=== PATIENT | female | born 1935 | race Caucasian/White ===

== ENCOUNTER → 2016-09-06 | Day surgery (SDC) | payer OTHER, MEDICARE ==
[~2016-09-06] MED LIST: AGRYLIN0.5 MG PO; ALBUTEROL1.25 MG/1 INH/SOL; AMMONIUM LACTA140 GM TOP; ASPIRIN EC81 M1 PO; AUGMENTIN 875-1 EACH PO; CEFADROXIL500 M1 PO; CYCLOBENZAPRINE5 M2 PO; ERYTHROMYCIN1 GM OS; GUAIFENESIN DM S5 ML PO; HYDROXYUREA500 M1 PO; IBUPROFEN600 M1 PO; LORATADINE10 M1 PO; MONTELUKAST SOD10 M1 PO; OMEPRAZOLE20 M2 PO; PREDNISONE10 M2 PO; RESTASIS1 EACH OPH; SYMBICORT 16010.2 GM INH; TIMOPTIC-XE5 M1 OS; TRAMADOL HCL50 M1 PO; TRIAMCINOLONE A15 G3 TOP
--- NOTE | 2016-09-06 14:02 | Operative Report ---
Operative/Inv Procedure Report Surgery Date: 09/06/16 Name of Procedure: Excision nasolabial lesion with frozen section with advancement rotation flap reconstruction, 3 x 4 cm Pre-Operative Diagnosis: Nasolabial lesion, right, 2 x 3 centimeters Post-Operative Diagnosis: Same Estimated Blood Loss: scant Surgeon/Adjunct Faculty Instructor: DELROY PEREZ MD Anesthesia: general endotracheal tube Drains: None Specimens: A nasolabial lesion, stitch 12 o"clock Complications: None Condition: Stable on leaving the OR Operative Indication: Nasolabial lesion Operative/Procedure Note Note: Patient was brought to the operating room. Placed on the operating table in supine position. First timeout was performed including patient's name, ID number and planned procedure. Then general orotracheal anesthesia was induced. Endotracheal tube was moved to the left corner of the left and taped. Operating room table was rotated 90 to the patient's right . Right face and nose exposed. A first biopsy with scissors was carried. A small fragment of the mass was sent for frozen. In the meantime injection of 1% lidocaine with 1-100, 000 epinephrine was carried. A transverse injection was carried over the upper lip and then along the nasal columella and lateral nostril and onto the nasal fossa. The area was then prepped and draped in the routine manner and surgery was performed. The lesion was exophytic and obstructing the right nostril. It was extending from lateral nostril, over the skin of the upper lip and medially onto the nasal columella. Then the lesion was extending along the floor of the nose into the anterior nasal fossa. It measured approximately 2 x 3 cm. It was quite hemorrhagic. Frozen section returned as described with proliferative lesion. Excision was then carried taking into consideration adequate surgical margins. Excision started at the upper lip region and extended onto the nasal columella sparing the cartilage and then laterally onto the nasal alar and then along the floor of the nose until the entire lesion was excised. Deep excision in both soft tissue and the muscular layer. Once the lesion was excised it was marked with 12:00 stitch orientation. Bleeding was controlled with the Bovie. Lesion was sent for frozen to assess the margins. Pathology revealed that all the margins were clear. Closure was then carried. Advancement rotational flap was created to avoid widening of the nostril and to avoid pulling nasal mucosa to the outside as well as to avoid retracting the upper lip to high in exposure of the upper teeth. Deep layer was closed first with 5-0 Vicryl. Either lateral aspect of the nostril was medialized to approximate the size of the nostril on the left side. The skin was closed with 5-0 nylon. The wound was cleaned and Polysporin was applied. Surgery was completed. The patient was reawakened, extubated and taken to the recovery room in good condition. There were no complications. Estimated blood loss was minimal. Findings: Upper lid, nostril, nasal floor, nasal columella - exophytic hemorrhagic lesion , approximately 2 x 3 cm and obstructing the right nostril. It was extending from lateral nostril, over the skin of the upper lip and medially onto the nasal columella. Then the lesion was extending along the floor of the nose into the anterior nasal fossa. Discharge Disposition: PACU
== END ==
LOC: STS 01:30
DX: C30.0 Malignant neoplasm of nasal cavity (principal); I10 Essential (primary) hypertension; D45 Polycythemia vera; R51 Headache; J45.909 Unspecified asthma, uncomplicated
CPT/HCPCS: 88305; 88331; 88332; J0690; J1100; J2405

== ENCOUNTER 2017-09-04 12:21 | Inpatient (IN) | payer OTHER, MEDICARE ==
[~2017-09-04] VITALS: Ht 157.5 cm; Wt 74.5 kg
--- NOTE | 2017-09-04 15:15 | RADIOLOGY REPORT ---
EXAMINATION: XR CHEST CLINICAL INFORMATION: Cough and fever COMPARISON: 03/08/2016 TECHNIQUE: 2 views of the chest were obtained. FINDINGS: No significant abnormality is noted involving the heart, lungs, mediastinum, bony thorax or soft tissues. An incidental bone island is seen in the upper thoracic spine. IMPRESSION: Unremarkable examination.
[2017-09-04 15:52] LABS: ABSOLUTE BASOPHIL COUNT 0.8 /CUMM (0.0-0.2); ABSOLUTE EOSINOPHIL COUNT 0.3 /CUMM (0.0-0.7); ABSOLUTE GRANULOCYTE CT 23.7 /CUMM (1.4-6.5); ABSOLUTE LYMPH COUNT 1.1 /CUMM (1.2-3.4); ABSOLUTE MONOCYTE COUNT 1.8 /CUMM (0.10-0.60); EOSINOPHIL % 1.1 % (0-5); GRANULOCYTE % 85.4 % (42.2-75.2); HEMATOCRIT 45.2 % (37-47); MEAN CORPUSCULAR HGB 37.7 PG (27.0-31.0); MEAN CORPUSCULAR HGB CONC 31.8 G/DL (33.0-37.0); MEAN CORPUSCULAR VOLUME 118.5 FL (81.0-99.0); MEAN PLATELET VOLUME 9.7 FL (7.4-10.4); PLATELET COUNT 801 /CUMM (130-400); RBC DISTRIBUTION WIDTH 16.1 % (11.5-14.5); RED BLOOD CELL CT 3.81 /CUMM (4.20-5.40); WHITE BLOOD CELL COUNT 27.7 /CUMM (4.8-10.8)
[2017-09-04] MEDS ORDERED: ASPIRIN EC81 M1 PO (16:06)
--- NOTE | 2017-09-04 17:03 | ED GENERAL ADULT ---
History of Present Illness General Chief Complaint: Upper Respiratory Sx/Fever Stated Complaint: COUGH Source: patient Exam Limitations: no limitations Vital Signs & Intake/Output Vital Signs & Intake/Output Vital Signs Date Time Temp Pulse Resp B/P B/P Pulse O2 O2 Flow FiO2 Mean Ox Delivery Rate 09/06 1452 98.1 97 20 98/60 92 Room Air 09/06 0800 96 Room Air 09/06 0603 97.7 87 20 110/78 94 09/06 0000 Room Air 09/05 2211 97.9 88 20 96/64 92 Room Air ED Intake and Output 09/06 0000 09/05 1200 Intake Total 840 240 Output Total Balance 840 240 Intake, Oral 840 240 Number 1 Bowel Movements Allergies Coded Allergies: No Known Allergies (09/04/17) Triage Note: PT TO ED FOR C/C OF PRODUCTIVE YELLOW COUGH X 2 DAYS. DENIES CHEST PAIN, SOB, ABD PAIN, BODY ACHES, CHILLS. PT REPORTS AFTER EATING COUGH GETS WORSE. Triage Nurses Notes Reviewed? yes Onset: Gradual Duration: day(s): (2), constant, continues in ED, getting worse Timing: single episode today Injury Environment: home Severity: moderate, severe No Modifying Factors: none Associated Symptoms: cough LMP (ages 10-50): unknown : No Patient currently breastfeeds: No HPI: 82-year-old female past medical history of polycythemia vera presents for evaluation of cough, congestion and fever. Patient reports symptoms started about 2 days ago be getting worse. Cough is productive of yellow sputum. She reports wheezing and some shortness of breath. Fever started today. No nausea vomiting abdominal pain chest pain hemoptysis or lower extremity edema. She denies any history of smoking or lung disease. She not take any medicine for this. No sick contacts or recent travel. (Williams CORONA,Doc) Reconcile Medications Anagrelide Hydrochloride (Agrylin) 0.5 MG CAPSULE 1 TAB PO BID UNKNOWN ( Reported) Aspirin (Ecotrin*) 81 MG TABLET.DR 1 TAB PO DAILY HEART/BLOOD (Reported) Azithromycin 250 MG TABLET 1 TAB PO DAILY Bronchitis Cyclosporine (Restasis) 1 EACH DROPERETTE 1 GTT OPH BID BOTH EYES (Reported) Hydroxyurea 500 MG CAPSULE 3 CAP PO DAILY PVC (Reported) Montelukast Sodium 10 MG TABLET 1 TAB PO QPM ALLERGIES (Reported) Oseltamivir Phosphate (Tamiflu) 30 MG CAPSULE 1 CAP PO BID Influenza Prednisone 10 MG TABLET 0 PO AD Shortness of Breath Timolol Maleate (Timoptic-Xe) 5 ML NIC.GEL 1 GTT OS QAM LEFT EYE (Reported) (Elier LÓPEZ,Oscar Sal) Past History Travel History Traveled to [place] past 21 day No Medical History Any Pertinent Medical History? 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 No (Doc Yusuf) Review of Systems Review of Systems Constitutional: Reports: fever, malaise. EENTM: Reports: no symptoms. Respiratory: Reports: see HPI, cough, sputum production, wheezing. Cardiovascular: Reports: no symptoms. GI: Reports: no symptoms. Genitourinary: Reports: no symptoms. Musculoskeletal: Reports: no symptoms. Skin: Reports: no symptoms. Neurological/Psychological: Reports: no symptoms. Hematologic/Endocrine: Reports: no symptoms. Immunologic/Allergic: Reports: no symptoms. All Other Systems: Reviewed and Negative (Doc Yusuf) Physical Exam Physical Exam General Appearance: well developed/nourished, no apparent distress, alert, awake Head: atraumatic, normal appearance Eyes: Bilateral: normal appearance, PERRL, EOMI. Ears, Nose, Throat: normal pharynx, normal ENT inspection, hearing grossly normal Neck: normal inspection, supple, full range of motion Respiratory: chest non-tender, no respiratory distress, rhonchi, wheezing Cardiovascular: regular rate/rhythm, normal peripheral pulses Peripheral Pulses: 2+ radial (R), 2+ radial (L) Gastrointestinal: soft, non-tender Back: normal inspection, normal range of motion, no vertebral tenderness Extremities: normal inspection, normal range of motion, no edema Neurologic/Psych: no motor/sensory deficits, awake, alert, oriented x 3, normal gait, normal mood/affect Skin: intact, normal color, warm/dry Lymphatic: no anterior cervical raymond Core Measures ACS in differential dx? No CVA/TIA Diagnosis: No Sepsis Present: No Sepsis Focused Exam Completed? No (Doc Yusuf) Progress Differential Diagnoses I considered the following diagnoses in my evaluation of the patient: [Pneumonia , influenza, acute bronchitis, COPD, CHF, PE] Plan of Care: Orders Procedure Date/time Status CBC WITHOUT DIFFERENTIAL 09/07 0600 Active MISSING MEDICATION FORM 09/06 UNK Active MISSING MEDICATION FORM 09/05 2119 Active Current Medications Sig/Chantel Start time Last Medication Dose Stop Time Status Admin Prednisone 10 MG DAILY 09/09 1000 AC 09/09 1001 Prednisone 20 MG DAILY 09/08 1000 AC 09/08 1001 Prednisone 30 MG DAILY 09/07 1000 AC 09/07 1001 Albuterol Sulfate 3 ML Q4 09/06 1400 AC (Proventil) Ipratropium Bend 2.5 ML Q4 09/06 1400 AC (Atrovent) Azithromycin 250 MG DAILY 09/06 1000 AC 09/06 (Zithromax) 0920 Benzocaine/Menthol 1 STEPHANIE Q2P PRN 09/06 0330 AC 09/06 (Chloraseptic 0929 Lozenges) Oseltamivir Phosphate 30 MG BID 09/05 1338 AC 09/06 (Tamiflu) 09/09 1337 0946 Aspirin Buffered 81 MG DAILY 09/05 1000 AC 09/06 (Ecotrin) 0920 Hydroxyurea 1,500 MG DAILY 09/05 1000 AC 09/06 (Hydrea) 0920 Guaifenesin/Codeine 10 ML Q6P PRN 09/05 0845 AC 09/06 Phosphate 1348 (Robitussin AC) Guaifenesin 600 MG Q12 09/04 2300 AC 09/06 (Mucinex) 0919 Omeprazole 40 MG DAILY AC 09/04 2300 AC 09/06 (Prilosec) 0600 Anagrelide HCl 0.5 MG BID 09/04 2200 AC 09/06 (Agrylin) 0920 Benzonatate 100 MG TID PRN 09/04 2200 AC 09/05 (Tessalon Capsule) 09/07 215 0533 Montelukast Sodium 10 MG QPM 09/04 2200 AC 09/05 (Singulair) 2120 Enoxaparin Sodium 40 MG DAILY 09/04 2005 AC 09/06 (Lovenox) 0920 Patient seen and evaluated. She currently is febrile to 100.3 she has a cough productive of clear sputum. Suspicion for pneumonia versus bronchitis. She has diffuse wheezing bilaterally DuoNeb ordered. Blood work shows elevated white blood cell count of 27,000. Patient does have a history of polycythemia vera but her previous white blood cell count was 6000. PCV theoretically should not affect her white blood cells. She also has signs and symptoms of lung infection and bronchitis. Urine is clean. Her abdomen and pelvis is soft and nontender. EKG is stable troponin negative CTA is negative for PE or pneumonia. Patient will be admitted to the hospital for further evaluation due to bronchitis with fever and significant leukocytosis. She will require IV antibiotics serial labs , SERIAL chest x-rays monitoring of vital signs. Case discussed with Dr. Thapa he agrees. Diagnostic Imaging: Viewed by Me: Radiology Read, CT Scan. Discussed w/RAD: Radiology Read, CT Scan. Radiology Impression: PATIENT: BELEN YEAGER PRESENT AGE: 82 PATIENT ACCOUNT NO: [id number] : 33 LOCATION: [facility] ORDERING PHYSICIAN: Doc CORONA SERVICE DATE: 09/04/17 EXAM TYPE: CAT - CTA CHEST-PULMONARY EMBOLISM EXAMINATION: CT ANGIOGRAM OF THE CHEST WITH AND WITHOUT CONTRAST (CT PULMONARY ANGIOGRAM FOR PE) CLINICAL INFORMATION: Cough, fever and shortness of breath. COMPARISON: Chest radiograph 09/04/2017. CT chest 01/13/2016. TECHNIQUE: Prior to contrast administration, noncontrast localization images were obtained. Subsequently, multidetector volumetric imaging was performed from the thoracic inlet to below the diaphragms following the administration of 94 mL Optiray 320 intravenous contrast. No contrast reaction reported. Sagittal, coronal, and MIP oblique sagittal reformatted images were obtained on the CT workstation, uploaded to PACS, and reviewed. DLP: 474 mGy-cm FINDINGS: QUALITY OF STUDY/CONTRAST BOLUS: Poor to fair. There is significant respiratory motion artifact limiting peripheral assessment. PULMONARY ARTERIES: No central or segmental pulmonary emboli. Subsegmental vessels are not evaluated. The main pulmonary artery is normal in caliber. There is mild dilatation of the central right and left pulmonary arteries. THORACIC AORTA: No aneurysm or dissection. The ascending aorta measures 3.8 cm in maximum diameter. Coronary artery calcification (LAD) is partly visualized. LUNG: No obvious consolidation or mass is identified. Mild bibasilar subsegmental atelectasis. PLEURA: No pleural effusion or pneumothorax. MEDIASTINUM: Normal heart size. No pericardial effusion. No hilar or mediastinal lymphadenopathy. No evidence of septal bowing or right heart strain. CHEST WALL/AXILLA: No axillary or internal mammary lymphadenopathy. OSSEOUS STRUCTURES: A bone island is identified at T4. Multilevel degenerative changes are seen. UPPER ABDOMEN: The visualized liver is unremarkable. There is cholelithiasis without gallbladder wall thickening or pericholecystic fluid. The spleen is enlarged measuring 14.7 cm in AP dimension. Visualized pancreas and adrenal glands are unremarkable. IMPRESSION: 1. No evidence of central pulmonary embolism or major consolidation or atelectasis. 2. The study is limited by motion. 3. Cholelithiasis without evidence of cholecystitis. Splenomegaly. VTE: Negative. DICTATED BY: Dario Hill MD DATE/TIME DICTATED:09/04/171756 SHIPPING ORDER CLERK:RAMOS DATE/TIME TRANSCRIBED:09/04/171756 CONFIDENTIAL, DO NOT COPY WITHOUT APPROPRIATE AUTHORIZATION. <Electronically signed in Other Vendor System> SIGNED BY: Dario Hill MD 09/04/171839, PATIENT: BELEN YEAGER PRESENT AGE: 82 PATIENT ACCOUNT NO: [id number] : 33 LOCATION: [facility] ORDERING PHYSICIAN: Doc CORONA SERVICE DATE: 09/04/17 EXAM TYPE: RAD - XRY-CHEST XRAY, TWO VIEWS EXAMINATION: XR CHEST CLINICAL INFORMATION: Cough and fever COMPARISON: 03/08/2016 TECHNIQUE: 2 views of the chest were obtained. FINDINGS: No significant abnormality is noted involving the heart, lungs, mediastinum, bony thorax or soft tissues. An incidental bone island is seen in the upper thoracic spine. IMPRESSION: Unremarkable examination. DICTATED BY: Dario Hill MD DATE/TIME DICTATED:09/04/171509 SHIPPING ORDER CLERK:RAMOS DATE/TIME TRANSCRIBED:09/04/171509 CONFIDENTIAL, DO NOT COPY WITHOUT APPROPRIATE AUTHORIZATION. <Electronically signed in Other Vendor System> CXR Impression: PATIENT: BELEN YEAGER PRESENT AGE : 82 PATIENT ACCOUNT NO: [id number] : 33 LOCATION: [facility] ORDERING PHYSICIAN: Doc CORONA SERVICE DATE: 09/04/17 EXAM TYPE: RAD - XRY- CHEST XRAY, TWO VIEWS EXAMINATION: XR CHEST CLINICAL INFORMATION: Cough and fever COMPARISON: 03/08/2016 TECHNIQUE: 2 views of the chest were obtained. FINDINGS: No significant abnormality is noted involving the heart, lungs, mediastinum, bony thorax or soft tissues. An incidental bone island is seen in the upper thoracic spine. IMPRESSION: Unremarkable examination. DICTATED BY: Dario Hill MD DATE/TIME DICTATED:09/04/171509 SHIPPING ORDER CLERK:SUZANNE DATE/TIME TRANSCRIBED:09/04/171509 CONFIDENTIAL, DO NOT COPY WITHOUT APPROPRIATE AUTHORIZATION. <Electronically signed in Other Vendor System> Initial ED EKG: normal sinus rhythm, PROBABLE INFERIOR INFARCT OLD (Doc Yusuf) Departure Departure Disposition: STILL A PATIENT Condition: Stable Clinical Impression Primary Impression: Acute bronchitis Qualifiers: Bronchitis organism: unspecified organism Qualified Code: J20.9 - Acute bronchitis, unspecified Secondary Impressions: Fever Qualifiers: Fever type: unspecified Qualified Code: R50.9 - Fever, unspecified Leukocytosis Qualifiers: Leukocytosis type: unspecified Qualified Code: D72.829 - Elevated white blood cell count, unspecified Referrals: Kit LÓPEZ,Josselin Alvarado (PCP/Family) Departure Forms: Customer Survey General Discharge Information (Doc Yusuf) Departure Prescriptions: Current Visit Scripts Oseltamivir Phosphate (Tamiflu) 1 CAP PO BID #7 CAP Prednisone 0 PO AD #12 TAB Azithromycin 1 TAB PO DAILY #3 TAB Admission Note Spoke With: Ginger Flynn MD Documentation of Exam: Documentation of any treatments & extenuating circumstances including Concerns Regarding Discharge (functional status, medication knowledge or non-compliance, living conditions, etc.) that warrant an admission rather than observation: [IV FLUIDS, IV ABX, PULM CONSULT, ID CONSULT] PA/AWNING ERECTOR Co-Sign Statement Statement: ED Attending supervision documentation- [X] I saw and evaluated the patient. I have also reviewed all the pertinent lab results and diagnostic results. I agree with the findings and the plan of care as documented in the PA's/AWNING ERECTOR's documentation. [X] I have reviewed the ED Record and agree with the PA's/AWNING ERECTOR's documentation. [] Additions or exceptions (if any) to the PAs/AWNING ERECTOR's note and plan are summarized below: [] (Elier LÓPEZ,Oscar Sal) Critical Care Note Critical Care Note Critical Care Time: non-applicable (Doc Yusuf) ED Sepsis Exam Date of Focused Sepsis Exam: 09/04/17 Time of Focused Sepsis Exam: 1931 Sepsis Cardiac Exam: Regular Rate/Rhythm Sepsis Resp Exam: Ronchi Sepsis Cap Refill Exam: <2 Sec Sepsis Peripheral Pulse Exam: Normal Sepsis Peripheral Pulse Location: Radial Sepsis Skin Color Exam: Normal for Ethnicity Skin Temp/Moisture Exam: Warm/Dry (Doc Yusuf)
--- NOTE | 2017-09-04 18:40 | CT SCAN REPORT ---
EXAMINATION: CT ANGIOGRAM OF THE CHEST WITH AND WITHOUT CONTRAST (CT PULMONARY ANGIOGRAM FOR PE) CLINICAL INFORMATION: Cough, fever and shortness of breath. COMPARISON: Chest radiograph 09/04/2017. CT chest 01/13/2016. TECHNIQUE: Prior to contrast administration, noncontrast localization images were obtained. Subsequently, multidetector volumetric imaging was performed from the thoracic inlet to below the diaphragms following the administration of 94 mL Optiray 320 intravenous contrast. No contrast reaction reported. Sagittal, coronal, and MIP oblique sagittal reformatted images were obtained on the CT workstation, uploaded to PACS, and reviewed. DLP: 474 mGy-cm FINDINGS: QUALITY OF STUDY/CONTRAST BOLUS: Poor to fair. There is significant respiratory motion artifact limiting peripheral assessment. PULMONARY ARTERIES: No central or segmental pulmonary emboli. Subsegmental vessels are not evaluated. The main pulmonary artery is normal in caliber. There is mild dilatation of the central right and left pulmonary arteries. THORACIC AORTA: No aneurysm or dissection. The ascending aorta measures 3.8 cm in maximum diameter. Coronary artery calcification (LAD) is partly visualized. LUNG: No obvious consolidation or mass is identified. Mild bibasilar subsegmental atelectasis. PLEURA: No pleural effusion or pneumothorax. MEDIASTINUM: Normal heart size. No pericardial effusion. No hilar or mediastinal lymphadenopathy. No evidence of septal bowing or right heart strain. CHEST WALL/AXILLA: No axillary or internal mammary lymphadenopathy. OSSEOUS STRUCTURES: A bone island is identified at T4. Multilevel degenerative changes are seen. UPPER ABDOMEN: The visualized liver is unremarkable. There is cholelithiasis without gallbladder wall thickening or pericholecystic fluid. The spleen is enlarged measuring 14.7 cm in AP dimension. Visualized pancreas and adrenal glands are unremarkable. IMPRESSION: 1. No evidence of central pulmonary embolism or major consolidation or atelectasis. 2. The study is limited by motion. 3. Cholelithiasis without evidence of cholecystitis. Splenomegaly. VTE: Negative.
[2017-09-04] MEDS ORDERED: MONTELUKAST SOD10 M1 PO (19:50)
--- NOTE | 2017-09-04 20:15 | History & Physical ---
VivekHayden 09/04/172012: General Information and HPI MD Statement: I have seen and personally examined BELEN YEAGER and documented this H&P. The patient is a 82 year old F who presented with a patient stated chief complaint of worsening of productive cough for last 2 days. []. Source of Information: patient, old records Exam Limitations: no limitations History of Present Illness: 82 YO F non smoker with PMH of polycythemia vera, thrombocytosis, JESSICA on night time O2, cataract, glaucoma and urinary incontinence came to ED with chief complaint of worsening of productive cough for last 2 days. Patient reported that she was in her usual state of health 2 days back when she noticed that her cough has been worsening and she is bringing up yellow colored phlegm. According to the patient she has baseline cough for a long time but for last 2 days it started to worsen and she had to cough all the time and she also noticed that her diaphragm color has been changed to yellow. Patient reported that along with cough she noticed pain in the lower lateral chest wall due to coughing. Patient denied any central chest pain, shortness of breath, palpitation, headache, nausea, vomiting, change in appetite, unintentional weight loss, abdominal pain, diarrhea, constipation and dysuria. Patient reported that she was diagnosed with obstructive sleep apnea by Dr. Staley and he recommended her to use nighttime oxygen but after her nostril surgery in 2016, she is not using any oxygen during nighttime. Patient is living alone at her home and her comes and helped her to follow the doctor's clinic. Patient reported that she is following her primary care physician regularly. Patient is using hydroxyurea for polycythemia vera and following . Last time patient was admitted in [facility] in December 2015 with acute hypoxic respiratory failure due to pneumonia. Patient also had intra-abdominal wall hematoma at that point with a care due to ATN. Her last echocardiogram was done in December 2015 with ejection fraction 5560 percent with stage I diastolic filling. Patient has lesion on left side of her upper lip for which she is following her licensed psychologist. ED course: Vitals: Temperature 100.3, pulse 109, respiratory rate 15, blood pressure 118/79 , oxygen saturation 97% on room air Labs: WBC count 27.7, hemoglobin 14.4, hematocrit 45.2, platelet count 801, sodium 140, potassium 4.8, BUN 26, creatinine 1.0, lactic acid 1.1, and 12, BUNs /creatinine ratio 26.0, glucose 93, bilirubin 1.3, AST 26, ALT 25, total protein 7.3 Patient was given 1 dose of azithromycin in ED Allergies/Medications Allergies: Coded Allergies: No Known Allergies (09/04/17) Home Med list Anagrelide Hydrochloride (Agrylin) 0.5 MG CAPSULE 1 TAB PO BID UNKNOWN ( Reported) Aspirin (Ecotrin*) 81 MG TABLET.DR 1 TAB PO DAILY HEART/BLOOD (Reported) Cyclosporine (Restasis) 1 EACH DROPERETTE 1 GTT OPH BID BOTH EYES (Reported) Hydroxyurea 500 MG CAPSULE 3 CAP PO DAILY PVC (Reported) Montelukast Sodium 10 MG TABLET 1 TAB PO QPM ALLERGIES (Reported) Timolol Maleate (Timoptic-Xe) 5 ML NIC.GEL 1 GTT OS QAM LEFT EYE (Reported) Past History Travel History Traveled to [place] past 21 day No Medical History Neurological: NONE EENT: cataracts, glaucoma, Retinal Detatchment Cardiovascular: NONE Respiratory: pneumonia Gastrointestinal: NONE Hepatic: NONE Renal: urinary incontinence Musculoskeletal: NONE Psychiatric: NONE Endocrine: NONE Blood Disorders: POLYCYTHEMIA VERA thrombocytosis Cancer(s): NONE SUPER[employer]OR [employer]PPLY/Reproductive: NONE History of MRSA: No History of VRE: No History of CDIFF: No Pneumonia Vaccine: 12/10/14 Surgical History Surgical History: N Past Family/Social History Family History Relations & Conditions if any MOTHER FH: diabetes mellitus SISTER FH: diabetes mellitus Psychosocial History Who Do You Live With? self Services at Home: None Primary Language: Turkmen ETOH Use: denies use Illicit Drug Use: denies illicit drug use Living Will? unknown Power of Steel Grinder/HCP? Patient deffered her - [place] Functional Ability ADLs Independent: dressing, eating, toileting, bathing. Ambulation: walker Review of Systems Review of Systems Constitutional: Reports: no symptoms. EENTM: Reports: no symptoms. Cardiovascular: Reports: no symptoms. Respiratory: Reports: cough, sputum production. GI: Reports: no symptoms. Genitourinary: Reports: no symptoms. Musculoskeletal: Reports: see HPI. Skin: Reports: see HPI. Neurological/Psychological: Reports: no symptoms. Hematologic/Endocrine: Reports: see HPI. Exam & Diagnostic Data Last 24 Hrs of Vital Signs/I&O Vital Signs Date Time Temp Pulse Resp B/P B/P Pulse O2 O2 Flow FiO2 Mean Ox Delivery Rate 09/04 2110 97.9 98 16 121/70 96 Room Air 09/04 2104 Room Air 09/04 2014 97.6 87 18 116/74 94 Room Air 09/04 1701 97.2 68 18 112/68 93 Room Air 09/04 1550 100.3 09/04 1226 100.3 109 15 118/79 97 Room Air Room Air Intake & Output 09/04 1600 09/04 0800 09/04 0000 Intake Total Output Total Balance Patient 170 lb Weight Weight Reported by Patient Measurement Method Physical Exam General Appearance Alert, Oriented X3, Cooperative, No Acute Distress Skin No Rashes Skin Temp/Moisture Exam: Warm/Dry Sepsis Skin Exam (color): Normal for Ethnicity HEENT Atraumatic, PERRLA, EOMI Neck Supple Cardiovascular Normal S1, Normal S2 Lungs Clear to Auscultation, Normal Air Movement Abdomen Normal Bowel Sounds, Soft Neurological Normal Speech, Strength at 5/5 X4 Ext, Normal Tone Extremities No Edema Assessment/Plan Assessment: 82 YO F with PMH of polycythemia vera, JESSICA, cataract, glaucoma and urinary incontinence came to ED with chief complaint of worsening of productive cough for last 2 days. We'll admit the patient on general medicine floor to treat for acute bronchitis. Acute bronchitis: Patient is meeting SIRS criteria 2 out of 4. Pulse 109, WBC count 27.7. Unclear about source of infection as her CT scan and chest x-ray is negative for pneumonia. Her lactic acid is 1.1 on admission. -Possible viral brochitis -TRC nebulization as needed -Mucinex for cough -PO omeprazole -Tessalon Perles -Follow blood and spuitum cultures -Follow off antibiotics now. -May need antibiotics if spikes fever or culture positive. -Pulmonology consult (call Dr. Staley) History of polycythemia: -Continue hydroxyurea History of thrombocytosis: -Continue Agrylin DVT prophylaxis: Mechanical and subcutaneous heparin CODE STATUS: Full code As Ranked By This Provider Problem List: 1. Acute bronchitis Qualifiers Bronchitis organism: unspecified organism Qualified Code: J20.9 - Acute bronchitis, unspecified 2. Leukocytosis Qualifiers Leukocytosis type: unspecified Qualified Code: D72.829 - Elevated white blood cell count, unspecified Core Measures/Misc (03/09) Acute Coronary Syndrome ACS Diagnosis: No Congestive Heart Failure Congestive Heart Failure Diagnosis No Cerebrovascular Accident CVA/TIA Diagnosis: No VTE (View Protocol) VTE Risk Factors Age>40 No Mechanical VTE Prophylaxis d/t N/A MechProphylax Ordered No VTE Pharm Prophylaxis d/t NA PharmProphylax ordered Sepsis (View protocol) Sepsis Present: No Nahomy Brown 09/04/17 2206: Resident Review Statement Resident Statement: examined this patient, discussed with it intern, agreed with it intern Other Findings: Patient is 82-year-old pleasant female with past medical history significant for polycythemia vera on hydroxyurea, and thrombocytosis on anagrelide, obstructive sleep apnea, status post nasal growth removal came in with chief complaint of worsening productive cough for 1-2 days. Last admission at [facility] in January 2016 for acute respiratory failure due to pneumonia and abdominal wall hematoma. Patient had mild cough for a few weeks but for last 2 days her cough Worse make her up all night. Cough is productive of clear phlegm and she denied any associated chills, and shortness of breath, chest pain, dizziness, nausea, vomiting, any urinary or bowel complaints. She denied any high-grade fever at home. There is no h/o sick contact. Vital signs on admission but temperature 100.3, pulse 109, respiratory rate 15, blood pressure 118/79 and she was saturating 97% on room air. Labs were significant for WBC count 27.7 with no bandemia, hemoglobin 14.4, hematocrit 45.2, platelet 801, normal electrolytes, BUN 26, creatinine 1.0, negative troponins Imaging study doesn't show any significant acute cardiopulmonary pathology EKG showed normal sinus rhythm with no acute ST-T wave changes On examination Alert and oriented 3 Head atraumatic HEENT PERRLA, atraumatic Neck supple Chest clear to auscultate with reduced air entry Heart S1-S2 normal with no added sounds Abdomen soft, no organomegaly, normal bowel sounds Extremities showed no edema, cyanosis Neurological examination showed no neurological deficit. Assessment and plan 82-year-old female with history of polycythemia vera, obstructive sleep apnea came in with chief complaint of worsening cough and leukocytosis most likely due to acute viral bronchitis. Problem list 1. Worsening cough most likely due to bronchitis 2. History of polycythemia vera 3. Meeting criteria for Sirs 4. Thrombocytosis Plan 1. We'll admit her in general medical floor 2. We will treat her symptomatically with cough suppressant, mucolytics and proton pump inhibitors. 3. We will monitor her WBC count. At this point no need to treat her with antibiotics given her negative imaging study. 4. We'll continue her home medications including hydroxyurea, anagrelide and montelukast. 5. We'll request pulmonology evaluation by Dr. Staley in a.m. Patient is full code Pharmacological DVT prophylaxis Heart healthy diet Ginger Flynn 09/05/17 0228: Attending MD Review Statement Attending Statement Attending MD Statement: examined this patient, discuss w/resident/PA/RAG CUTTING MACHINE OPERATOR, agreed w/resident/PA/RAG CUTTING MACHINE OPERATOR, reviewed EMR data (avail), reviewed images, amended to note Attending Assessment/Plan: CC: Cough PMH: Polycythemia vera, seasonal allergies, JESSICA on night time 02 Patient has chronic cough but since yesterday she noticed that her cough is getting worse, more so after eating. She could not sleep the whole night yesterday, endorses wheezing. She has white color sputum production. Denies any sick contacts, no smoking history, no passive smoking exposure. She denies any sinus congestion, nasal discharge, throat pain, sore throat, chest pain, chest congestion, palpitations. No fever or chills at home. Vitals: MAXIMUM TEMPERATURE 100.3, pulse 109, RR 15, blood pressure 118/79, saturating well on room air. On exam: A O 3, cooperative, no acute distress, neck supple, JVD normal, no lymphadenopathy, mucosa moist, no pharyngeal congestion, no focal neurological deficit, no dependent edema, no obvious skin rashes or inflammation CVS: S1-S2, RRR. RS: Clear to auscultate bilaterally. Abdomen: Soft, NT, ND, bowel sounds present. Assessment and plan 82-year-old female with past medical history significant for polycythemia, JESSICA and seasonal allergies presented in ER for excessive cough since yesterday with white colored sputum production, could not sleep all night. She also endorses associated wheezing intermittently but denies any fever or chills at home, chest pain, chest tightness, nasal congestion or discharge. Auscultation unremarkable except questionable mild wheezing anterior chest wall. She is found to have significant leukocytosis of 27,000 with left shift. Chest x-ray and CTA chest was unremarkable. No other source of infection identified. Patient may be having viral bronchitis with SIRS response. Given her history of PCV, currently on medications and fever of 100.3, she needs closer monitoring but hold off antibiotics, obtain blood cultures, provide symptomatic treatment and reassess. Influenza negative. She is on anagrelide and hydroxyurea but leukocytosis is less likely medication side effect. + SIRS with unclear source of infection + ?Viral infection bronchitis + Hx of PCV - Admit to general medicine - Continue TRC nebs - Continue Tesrajan Infante - Continue Mucinex - Watch off antibiotics - Follow blood cultures - Continue on her home medications - Inform Dr. Staley, patient requests - Patient may need antibiotics if fever spike
[2017-09-04 21:11] VITALS: BP 121/70
[2017-09-04 23:28] VITALS: BP 106/71
--- NOTE | 2017-09-05 07:18 | PN- Housestaff ---
See Addendum Subjective Follow-up For: Influenza B Viral Bronchitis Subjective: Patient was seen and examined at bedside. She states that her chest hurts from all the coughing. She feels the cough syrup helped her though. Review of Systems Constitutional: Reports: no symptoms. Objective Last 24 Hrs of Vital Signs/I&O Vital Signs Date Time Temp Pulse Resp B/P B/P Pulse O2 O2 Flow FiO2 Mean Ox Delivery Rate 09/05 1452 97.3 107 20 110/60 91 Room Air 09/05 1056 Room Air Room Air 09/05 0759 99.9 105 20 127/73 96 Room Air 09/05 0000 Room Air 09/04 2328 98.6 52 18 106/71 94 Room Air 09/04 2111 97.9 98 16 121/70 96 Room Air 09/04 2104 Room Air 09/04 2015 97.6 87 18 116/74 94 Room Air 09/04 1701 97.2 68 18 112/68 93 Room Air 09/04 1550 100.3 Intake & Output 09/05 1600 09/05 0800 09/05 0000 Intake Total 240 120 Output Total Balance 240 120 Intake, Oral 240 120 Patient 164 lb Weight Weight Bed scale Measurement Method Physical Exam General Appearance: Alert, Oriented X3, Cooperative, No Acute Distress Skin: No Rashes, No Breakdown Skin Temp/Moisture Exam: Warm/Dry Sepsis Skin Exam (color): Normal for Ethnicity HEENT: Atraumatic Cardiovascular: Normal S1, Normal S2, No Murmurs Lungs: diffuse rhonchi Abdomen: Soft, No Tenderness Neurological: Normal Speech Extremities: No Edema Assessment/Plan Assessment: 82 yo F with PMH of polycythemia vera, thrombocytosis, JESSICA on night time O2, cataract, glaucoma and urinary incontinence came to ED with chief complaint of worsening of productive cough for last 2 days. Assessment: 1. Influenza B 2. Viral Bronchitis 3. Leukocytosis Plan: * Start Tamiflu 30mg BID * Azithromycin 500mg today and 250mg from tomorrow for a total of 5 days. She can continued on this if going home over the weekend. * Prednisone 40mg with taper every 2 days. * Pulm recs appreciated. * Continue night time oxygen if needed. * She has a high white count which has slightly trended down from yesterday. Her old records from earlier this year in June show her white count to be 12.9. This is clearly elevated likely in the setting of infection. * Swallow eval to assess for any aspiration. * Discharge planning based on clinical improvement. * Diet: Regular * DVT Prophylaxis: * Code: Full code Problem List: 1. Influenza B Pain Ratin Pain Location: none Pain Goal: Remain pain free Pain Plan: none Tomorrow's Labs & Rationales: CBC, BEP
[2017-09-05 07:59] VITALS: BP 127/73
[2017-09-05 08:41] LABS: ABSOLUTE BASOPHIL COUNT 0 /CUMM (0.0-0.2); ABSOLUTE EOSINOPHIL COUNT 0.3 /CUMM (0.0-0.7); ABSOLUTE GRANULOCYTE CT 24.7 /CUMM (1.4-6.5); ABSOLUTE LYMPH COUNT 0.7 /CUMM (1.2-3.4); ABSOLUTE MONOCYTE COUNT 0.2 /CUMM (0.10-0.60); BASOPHIL % 0 % (0.0-2.0); EOSINOPHIL % 1.1 % (0-5); GRANULOCYTE % 95.5 % (42.2-75.2); MEAN CORPUSCULAR HGB 37.8 PG (27.0-31.0); MEAN PLATELET VOLUME 9.8 FL (7.4-10.4); RBC DISTRIBUTION WIDTH 16.5 % (11.5-14.5); RED BLOOD CELL CT 3.35 /CUMM (4.20-5.40); WHITE BLOOD CELL COUNT 25.9 /CUMM (4.8-10.8)
[2017-09-05 10:18] LABS: HEMATOCRIT 39.5 % (37-47)
[2017-09-05 10:20] LABS: PLATELET COUNT 645 /CUMM (130-400)
--- NOTE | 2017-09-05 10:43 | Patient Discharge Instructions ---
Discharge Instructions General Discharge Information You were seen/treated for: Acute Bronchitis Special Instructions: Please follow up with your PCP and fashion illustrator within one week of discharge. Please have your CBC checked on 09/15/17 Diet Continue normal diet: Yes Activity Full Activity/No Limits: Yes Acute Coronary Syndrome Inclusion Criteria At DC or during hospital stay patient has or had the following: ACS DIAGNOSIS No Discharge Core Measures Meds if any: Prescribed or Continued at Discharge Meds if any: NOT Prescribed or Continued at Discharge Congestive Heart Failure Inclusion Criteria At DC or during hospital stay patient has or had the following: CHF DIAGNOSIS No Discharge Core Measures Meds if any: Prescribed or Continued at Discharge Meds if any: NOT Prescribed or Continued at Discharge Cerebrovascular accident Inclusion Criteria At DC or during hospital stay patient has or had the following: CVA/TIA Diagnosis No Discharge Core Measures Meds if any: Prescribed or Continued at Discharge Meds if any: NOT Prescribed or Continued at Discharge Venous thromboembolism Inclusion Criteria VTE Diagnosis No VTE Type NONE VTE Confirmed by (Test) NONE Discharge Core Measures - Per Current guidelines, there needs to be overlap - treatment for the first 5 days of Warfarin therapy. - If discharged on Warfarin prior to 5 days of - overlap therapy, the patient will need to be - assessed for post discharge needs including - *Post discharge parental anticoagulation - *Warfarin and/or parental anticoagulation education - *Follow up date to check INR post discharge At least 5 days overlap therapy as Inpatient No Meds if any: Prescribed or Continued at Discharge Note: Overlap Therapy is Warfarin and Anticoagulant Meds if any: NOT Prescribed or Continued at Discharge
[2017-09-05 14:52] VITALS: BP 110/60
--- NOTE | 2017-09-05 14:55 | Cons- Pulmonary ---
General Information and HPI Consulting Request Date of Consult: 09/05/17 Requested By: Dr. Mack Reason for Consult: dyspnea Source of Information: patient Exam Limitations: no limitations History of Present Illness: 82 year old woman known to me from the office. She sees me for nocturnal hypoxemia/chronic hypoxemic respiratory failure. Nocturnal pulse oximetry 04/2016 80% lowest and 72 minutes below 89%. Has had a nasal lesion and s/p excision, hence has not used nocturnal o2. History of PCV. Presented with a productive cough for 2 days, no obvious sick contacts, no travel hx. Leukocytosis 27.7 now 25.9. Positive for Influenza type B. CTA without PE or evidence of pneumonia. Feeling better overall, still with leukocytosis. Allergies/Medications Allergies: Coded Allergies: No Known Allergies (09/04/17) Home Med List: Anagrelide Hydrochloride (Agrylin) 0.5 MG CAPSULE 1 TAB PO BID UNKNOWN ( Reported) Aspirin (Ecotrin*) 81 MG TABLET.DR 1 TAB PO DAILY HEART/BLOOD (Reported) Cyclosporine (Restasis) 1 EACH DROPERETTE 1 GTT OPH BID BOTH EYES (Reported) Hydroxyurea 500 MG CAPSULE 3 CAP PO DAILY PVC (Reported) Montelukast Sodium 10 MG TABLET 1 TAB PO QPM ALLERGIES (Reported) Timolol Maleate (Timoptic-Xe) 5 ML NIC.GEL 1 GTT OS QAM LEFT EYE (Reported) Current Medications: Current Medications Sig/Chantel Start time Last Medication Dose Route Stop Time Status Admin Acetaminophen 0 .STK-MED ONE 09/04 1539 DC PO Acetaminophen 975 MG ONCE ONE 09/04 1445 DC 09/04 PO 09/04 1446 1550 Albuterol Sulfate 3 ML ONCE ONE 09/04 1445 DC 09/04 INH 09/04 1446 1457 Anagrelide HCl 0.5 MG BID 09/04 2200 AC 09/05 PO 0959 Aspirin Buffered 81 MG DAILY 09/05 1000 AC 09/05 PO 0959 Azithromycin 500 MG ONCE ONE 09/05 1030 DC 09/05 PO 09/05 1031 1340 Azithromycin 500 MG ONCE ONE 09/04 1900 DC 09/04 Dextrose/Water 250 ML IV 09/04 Benzonatate 100 MG TID PRN 09/04 2200 AC 09/05 PO 09/07 215 0533 Ceftriaxone Sodium 0 .STK-MED ONE 03/15 2004 DC .ROUTE Ceftriaxone Sodium 1,000 MG ONCE ONE 09/04 1900 DC 09/04 IV 09/04 1901 2009 Enoxaparin Sodium 0 .STK-MED ONE 09/04 2019 DC SC Enoxaparin Sodium 40 MG DAILY 09/04 2006 AC 09/05 SC 1000 Guaifenesin 600 MG Q12 09/04 2300 AC 09/05 PO 0959 Guaifenesin/Codeine 10 ML Q6P PRN 09/05 0845 AC 09/05 Phosphate PO 0959 Hydroxyurea 1,500 MG DAILY 09/05 1000 AC 09/05 PO 0959 Ipratropium [place] 2.5 ML ONCE ONE 09/04 1445 DC 09/04 INH 09/04 1446 1456 Montelukast Sodium 10 MG QPM 09/04 2200 AC 09/05 PO 0103 Omeprazole 40 MG DAILY AC 09/04 2300 AC 09/05 PO 0531 Oseltamivir Phosphate 30 MG BID 09/05 1338 AC PO 09/09 1337 Oseltamivir Phosphate 75 MG BID 09/05 1332 DC PO 09/09 1331 Prednisone 40 MG ONCE ONE 09/05 1030 DC 09/05 PO 09/05 1031 1221 Review of Systems Comments 18 point review of systems was performed and reviewed. Please see pertinent positives and pertinent negatives in the HPI. Otherwise ROS is negative. 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 Home Who Do You Live With? self Services at Home: None Primary Language: Armenian Smoking Status: Never Smoked ETOH Use: denies use Illicit Drug Use: denies illicit drug use Living Will? unknown Power of Bankruptcy Assistant/HCP? Patient deffered her - [place] Functional Ability ADLs Independent: dressing, eating, toileting, bathing. Ambulation: walker Exam & Diagnostic Data Last 24 Hrs of Vital Signs/I&O Vital Signs Date Time Temp Pulse Resp B/P B/P Pulse O2 O2 Flow FiO2 Mean Ox Delivery Rate 09/05 1056 Room Air Room Air 09/05 0759 99.9 105 20 127/73 96 Room Air 09/05 0000 Room Air 09/04 2328 98.6 52 18 106/71 94 Room Air 09/04 2111 97.9 98 16 121/70 96 Room Air 09/04 2104 Room Air 09/04 2014 97.6 87 18 116/74 94 Room Air 09/04 1701 97.2 68 18 112/68 93 Room Air 09/04 1550 100.3 Intake & Output 09/05 1600 09/05 0800 09/05 0000 Intake Total 240 120 Output Total Balance 240 120 Intake, Oral 240 120 Patient 164 lb Weight Weight Bed scale Measurement Method Physical Exam Other Physical Findings: Generally - Awake, alert Head and neck -nasal cannula Cardiovascular - S1, S2 Lungs - B/L rhonchi Abdomen - Bowel sounds positive, soft, non-tender Extremities - trace edema Last 48 Hrs of Labs/Arturo: Laboratory Tests 09/05/17 1138: Virus Culture Pending 09/05/17 0726: Anion Gap 12, Estimated GFR 53 L, BUN/Creatinine Ratio 24.0, CBC w Diff MAN DIFF ORDERED, RBC 3.35 L, MCV 118.0 H, MCH 37.8 H, MCHC 32.0 L, RDW 16.5 H, MPV 9.8, Gran % 95.5 H, Lymphocytes % 2.6 L, Monocytes % 0.8 L, Eosinophils % 1.1, Basophils % 0, Absolute Granulocytes 24.7 H, Absolute Lymphocytes 0.7 L, Absolute Monocytes 0.2, Absolute Eosinophils 0.3, Absolute Basophils 0, Polychromasia 2+, Poikilocytosis 2+, Anisocytosis 2+, Macrocytic Cells 3+, Stomatocytes 1+ 09/04/17 1741: Lactic Acid Cancelled 09/04/17 1706: Urine Color YEL, Urine Clarity HAZY H, Urine pH 6.0, Ur Specific [place] 1.020, Urine Protein TRACE H, Urine Ketones NEG, Urine Nitrite NEG, Urine Bilirubin NEG, Urine Urobilinogen 0.2, Ur Leukocyte Esterase NEG, Ur Microscopic SEDIMENT EXAMINED, Urine RBC RARE, Urine WBC RARE, Ur Epithelial Cells RARE, Urine Bacteria FEW H, Urine Mucus FEW, Urine Hemoglobin TRACE-INTACT, Urine Glucose NEG 09/04/17 1541: Anion Gap 12, Estimated GFR 53 L, BUN/Creatinine Ratio 26.0 H, Glucose 93, Lactic Acid 1.1, Calcium 8.9, Total Bilirubin 1.3, AST 26, ALT 25, Alkaline Phosphatase 88, Total Protein 7.3, Albumin 4.0, Globulin 3.3, Albumin/Globulin Ratio 1.2, CBC w Diff MAN DIFF ORDERED, RBC 3.81 L, MCV 118.5 H, MCH 37.7 H, MCHC 31.8 L, RDW 16.1 H, MPV 9.7, Gran % 85.4 H, Lymphocytes % 4.0 L, Monocytes % 6.5, Eosinophils % 1.1, Basophils % 3.0 H, Absolute Granulocytes 23.7 H, Segmented Neutrophils 86 H, Band Neutrophils 2, Absolute Lymphocytes 1.1 L, Lymphocytes 5 L, Monocytes 4, Absolute Monocytes 1.8 H, Eosinophils 2, Absolute Eosinophils 0.3, Basophils 1, Absolute Basophils 0.8, Nucleated RBCs 2 H, Platelet Estimate INCREASED, Polychromasia 1+, Anisocytosis 1+, Macrocytic Cells 2+, Stomatocytes FEW 09/04/17 1230: Virus Culture Pending Microbiology 09/05 1215 NASOPHARYN: Influenza Virus A & B Rapid Smear - COMP INFLUENZA TYPE B 09/04 1230 NASOPHARYN: Influenza Virus A & B Rapid Smear - COMP Assessment/Plan Impression/Plan: Impression 82 year old woman * viral bronchitis * influenza type B Plan -prednisone 40mgx2,30x2,20x2,10x2 then stop -okay to complete course of zpak (anti-inflammatory properties) -tamiflu course -droplet precautions -monitor wbc -trc/nebs -encourage and inquire if she is capable of using o2 at night which can benefit her polycythemia DVT prophylaxis at all times Consult Acknowledgment - Thank you for your consult request.
[2017-09-05] MEDS ORDERED: PREDNISONE10 M2 PO (19:12)
[2017-09-05] MEDS ORDERED: TAMIFLU30 M1 PO (19:12)
[2017-09-05] MEDS ORDERED: AZITHROMYCIN250 M1 PO (21:47)
[2017-09-05 22:11] VITALS: BP 96/64
[2017-09-06 06:03] VITALS: BP 110/78
--- NOTE | 2017-09-06 08:15 | PN- Housestaff ---
Danial LÓPEZ,Toma 09/06/17 0814: Subjective Follow-up For: Influenza positive Complaints: complains of cough Subjective: Patient was seen and examined at bedside. No overnight events. Patient complains of on and off cough with no sputum production. Patient is saturating well on 2 L of oxygen. She denies chest pain, chest pressure, nausea, vomiting, fever. Review of Systems Constitutional: Reports: no symptoms. EENTM: Reports: no symptoms. Respiratory: Reports: cough. Gastrointestinal: Reports: no symptoms. Objective Last 24 Hrs of Vital Signs/I&O Vital Signs Date Time Temp Pulse Resp B/P B/P Pulse O2 O2 Flow FiO2 Mean Ox Delivery Rate 09/06 1452 98.1 97 20 98/60 92 Room Air 09/06 0800 96 Room Air 09/06 0603 97.7 87 20 110/78 94 09/06 0000 Room Air 09/05 2211 97.9 88 20 96/64 92 Room Air Intake & Output 09/06 1600 09/06 0800 09/06 0000 Intake Total 720 240 240 Output Total 450 Balance 270 240 240 Intake, Oral 720 240 240 Number 1 Bowel Movements Output, Urine 450 Physical Exam General Appearance: Alert, Oriented X3, Cooperative, No Acute Distress Cardiovascular: Regular Rate, Normal S1, Normal S2 Lungs: Normal Air Movement Abdomen: Normal Bowel Sounds, Soft, No Tenderness, No Hepatospenomegaly Neurological: Strength at 5/5 X4 Ext, Normal Tone, Sensation Intact Extremities: No Edema, Normal Pulses Current Medications: Current Medications Sig/Chantel Start time Last Medication Dose Route Stop Time Status Admin Albuterol Sulfate 3 ML Q4 09/06 1400 AC INH Anagrelide HCl 0.5 MG BID 09/04 2199 AC 09/06 PO 0920 Aspirin Buffered 81 MG DAILY 09/05 1000 AC 09/06 PO 0920 Azithromycin 250 MG DAILY 09/06 1000 AC 09/06 PO 0920 Benzocaine/Menthol 1 STEPHANIE Q2P PRN 09/06 0330 AC 09/06 PO 0929 Benzonatate 100 MG TID PRN 09/04 2199 AC 09/05 PO 09/07 2159 0533 Enoxaparin Sodium 40 MG DAILY 09/04 2005 AC 09/06 SC 0920 Guaifenesin 600 MG Q12 09/04 2300 AC 09/06 PO 0919 Guaifenesin/Codeine 10 ML Q6P PRN 09/05 0845 AC 09/06 Phosphate PO 1348 Hydroxyurea 1,500 MG DAILY 09/05 1000 AC 09/06 PO 0920 Ipratropium [place] 2.5 ML Q4 09/06 1400 AC INH Montelukast Sodium 10 MG QPM 09/04 2200 AC 09/05 PO 2120 Omeprazole 40 MG DAILY AC 09/04 2300 AC 09/06 PO 0600 Oseltamivir Phosphate 30 MG BID 09/05 1338 AC 09/06 PO 09/09 1337 0946 Prednisone 10 MG DAILY 09/09 1000 AC PO 09/09 1001 Prednisone 20 MG DAILY 09/08 1000 AC PO 09/08 1001 Prednisone 30 MG TAPER 09/07 1000 DC PO 09/10 0959 Prednisone 30 MG DAILY 09/07 1000 AC PO 09/07 1001 Prednisone 40 MG DAILY 09/06 1000 DC 09/06 PO 0920 Assessment/Plan Assessment: 82 yo F with PMH of polycythemia vera, thrombocytosis, JESSICA on night time O2, cataract, glaucoma and urinary incontinence came to ED with chief complaint of worsening of productive cough for last 2 days. Assessment: 1. Influenza B 2. Viral Bronchitis 3. Leukocytosis Plan: * Continue Tamiflu 30mg BID * Azithromycin 500mg today and 250mg from tomorrow for a total of 5 days for its anti-inflammatory effects. She can continued on this if going home over the weekend. * Prednisone 40mg with taper every 2 days. * Pulm recs appreciated. * Continue night time oxygen if needed. * Patient cough hasn't improved and on examination she has bilateral wheeze. Start TRC nebulization. * Patient has a left arm subcutaneous hematoma with no warmth or redness. Suggested right arm elevation and cold compression. * Discharge planning based on clinical improvement. * Diet: Regular * DVT Prophylaxis: * Code: Full code Problem List: 1. Influenza B Pain Ratin Pain Location: None Pain Goal: Remain pain free Pain Plan: Tylenol Tomorrow's Labs & Rationales: CBC Cain LÓPEZ,Richard 09/06/17 1818: Attending Review Statement Attending Statement Attending MD Statement: examined this patient, discuss w/resident/PA/ELIGIBILITY TECHNICIAN, agreed w/resident/PA/ELIGIBILITY TECHNICIAN, discussed with nursing Attending Assessment/Plan: The patient was seen and discussed with house staff. Due to symptoms, rapid influenza testing was done which was positive. Started on Tamuflu and will follow up pulmonary recommendations. Patient had left upper extremity swelling from ?Lovenox subcutaneous injection. Continue to observe with warm compress. Will monitor in hospital today and follow up CBC tomorrow.
--- NOTE | 2017-09-06 09:06 | PN- Pulmonary ---
Subjective HPI/Critical Care Issues: Patient remains comfortable on room air with persistent cough Objective Current Medications: Current Medications Sig/Chantel Start time Last Medication Dose Route Stop Time Status Admin Anagrelide HCl 0.5 MG BID 09/04 2200 AC 09/05 PO 2120 Aspirin Buffered 81 MG DAILY 09/05 1000 AC 09/05 PO 0959 Azithromycin 250 MG DAILY 09/06 1000 AC PO Azithromycin 500 MG ONCE ONE 09/05 1030 DC 09/05 PO 09/05 1031 1340 Benzocaine/Menthol 1 STEPHANIE Q2P PRN 09/06 0330 AC 09/06 PO 0600 Benzonatate 100 MG TID PRN 09/04 2200 AC 09/05 PO 09/07 2159 0533 Enoxaparin Sodium 40 MG DAILY 09/04 2006 AC 09/05 SC 1000 Guaifenesin 600 MG Q12 09/04 2300 AC 09/05 PO 2120 Guaifenesin/Codeine 10 ML Q6P PRN 09/05 0845 AC 09/06 Phosphate PO 0635 Hydroxyurea 1,500 MG DAILY 09/05 1000 AC 09/05 PO 0959 Montelukast Sodium 10 MG QPM 09/04 2200 AC 09/05 PO 2120 Omeprazole 40 MG DAILY AC 09/04 2300 AC 09/06 PO 0600 Oseltamivir Phosphate 30 MG BID 09/05 1338 AC 09/05 PO 09/09 1337 2312 Oseltamivir Phosphate 75 MG BID 09/05 1332 DC PO 09/09 1331 Prednisone 40 MG DAILY 09/06 1000 AC PO Prednisone 40 MG ONCE ONE 09/05 1030 DC 09/05 PO 09/05 1031 1221 Vital Signs & I&O Last 24 Hrs of Vitals and I&O: Vital Signs Date Time Temp Pulse Resp B/P B/P Pulse O2 O2 Flow FiO2 Mean Ox Delivery Rate 09/06 0603 97.7 87 20 110/78 94 09/06 0000 Room Air 09/05 2211 97.9 88 20 96/64 92 Room Air 09/05 1452 97.3 107 20 110/60 91 Room Air 09/05 1056 Room Air Room Air Intake & Output 09/06 1600 09/06 0800 09/06 0000 Intake Total 240 240 Output Total Balance 240 240 Intake, Oral 240 240 Number 1 Bowel Movements Oxygen saturation 94% exam for chest shows occasional rhonchi cardiac exam shows regular S1 and S2 without murmurs Impression/Plan Impression/Plan Impression/Plan: 82-year-old woman admitted with influenza and bronchitis Recommendations: Complete course of antibiotics Tamiflu and rapidly taper prednisone. Follow up sputum C&S
[2017-09-06 14:52] VITALS: BP 98/60
[2017-09-06 22:34] VITALS: BP 109/72
[2017-09-07 07:43] VITALS: BP 147/94
[2017-09-07 08:55] LABS: ABSOLUTE BASOPHIL COUNT 0 /CUMM (0.0-0.2); ABSOLUTE EOSINOPHIL COUNT 0.1 /CUMM (0.0-0.7); ABSOLUTE GRANULOCYTE CT 20.6 /CUMM (1.4-6.5); ABSOLUTE LYMPH COUNT 0.7 /CUMM (1.2-3.4); ABSOLUTE MONOCYTE COUNT 0.1 /CUMM (0.10-0.60); BASOPHIL % 0 % (0.0-2.0); EOSINOPHIL % 0.6 % (0-5); GRANULOCYTE % 95.6 % (42.2-75.2); HEMATOCRIT 38.5 % (37-47); MEAN CORPUSCULAR HGB 37.4 PG (27.0-31.0); MEAN CORPUSCULAR HGB CONC 31.4 G/DL (33.0-37.0); MEAN CORPUSCULAR VOLUME 119.3 FL (81.0-99.0); MEAN PLATELET VOLUME 10.5 FL (7.4-10.4); PLATELET COUNT 690 /CUMM (130-400); RBC DISTRIBUTION WIDTH 16.1 % (11.5-14.5); RED BLOOD CELL CT 3.23 /CUMM (4.20-5.40); WHITE BLOOD CELL COUNT 21.6 /CUMM (4.8-10.8)
--- NOTE | 2017-09-07 09:02 | PN- Pulmonary ---
Subjective HPI/Critical Care Issues: Patient feels somewhat improved with decreased cough. She remains comfortable on room air. Objective Current Medications: Current Medications Sig/Chantel Start time Last Medication Dose Route Stop Time Status Admin Albuterol Sulfate 3 ML BID 09/07 1000 AC INH Albuterol Sulfate 3 ML Q4 09/06 1400 DC 09/06 INH 2158 Anagrelide HCl 0.5 MG BID 09/04 2200 AC 09/06 PO 2116 Aspirin Buffered 81 MG DAILY 09/05 1000 AC 09/06 PO 0920 Azithromycin 250 MG DAILY 09/06 1000 AC 09/06 PO 0920 Benzocaine/Menthol 1 STEPHANIE Q2P PRN 09/06 0330 AC 09/07 PO 0008 Benzonatate 100 MG TID PRN 09/04 2200 AC 09/06 PO 09/07 2159 2116 Enoxaparin Sodium 40 MG DAILY 09/04 2006 AC 09/06 SC 0920 Guaifenesin 600 MG Q12 09/04 2300 AC 09/06 PO 2116 Guaifenesin/Codeine 10 ML Q6P PRN 09/05 0845 AC 09/06 Phosphate PO 2003 Hydroxyurea 1,500 MG DAILY 09/05 1000 AC 09/06 PO 0920 Ipratropium [place] 2.5 ML Q4 09/06 1400 DC INH Montelukast Sodium 10 MG QPM 09/04 2200 AC 09/06 PO 2116 Omeprazole 40 MG DAILY AC 09/04 2300 AC 09/07 PO 0643 Oseltamivir Phosphate 30 MG BID 09/05 1338 AC 09/06 PO 09/09 1337 2116 Prednisone 10 MG DAILY 09/09 1000 AC PO 09/09 1001 Prednisone 20 MG DAILY 09/08 1000 AC PO 09/08 1001 Prednisone 30 MG TAPER 09/07 1000 DC PO 09/10 0959 Prednisone 30 MG DAILY 09/07 1000 AC PO 09/07 1001 Prednisone 40 MG DAILY 09/06 1000 DC 09/06 PO 0920 Vital Signs & I&O Last 24 Hrs of Vitals and I&O: Vital Signs Date Time Temp Pulse Resp B/P B/P Pulse O2 O2 Flow FiO2 Mean Ox Delivery Rate 09/07 0743 97.1 94 20 147/94 91 09/07 0000 94 Room Air 09/06 2234 98.0 95 20 109/72 94 Room Air 09/06 2207 92 Room Air 09/06 1600 Room Air 09/06 1452 98.1 97 20 98/60 92 Room Air Intake & Output 09/07 1600 09/07 0800 09/07 0000 Intake Total 480 500 Output Total Balance 480 500 Intake, Oral 480 500 Room air oxygen saturation 9194% exam for chest shows somewhat diminished breath sounds there are no wheezes present cardiac exam shows regular S1 and S2 without murmurs Impression/Plan Impression/Plan Impression/Plan: 82-year-old woman admitted with influenza and is slowly improving Recommendations: Complete course of antibiotics Tamiflu and rapidly taper prednisone. Follow up sputum C&S the patient continues to improve would hope for discharge tomorrow
[2017-09-07 14:01] VITALS: BP 111/71
--- NOTE | 2017-09-07 14:22 | PN- Gen Med ---
Assessment/Plan Medical Problem List: 1. Bronchitis 2. Hypoxia 3. Acute bronchitis Qualifiers Bronchitis organism: unspecified organism Qualified Code: J20.9 - Acute bronchitis, unspecified 4. Influenza B 5. SIRS (systemic inflammatory response syndrome) Plan: The patient was seen and discussed with house staff. Due to symptoms, rapid influenza testing was done which was positive. Started on Tamuflu and will follow up pulmonary recommendations. Patient had left upper extremity swelling from ?Lovenox subcutaneous injection. Continue to observe with warm compress. Will monitor in hospital today and follow up CBC tomorrow. Leucytosis is resolving. Discharge in AM. Subjective Follow-up For: Bronchitis SOB Subjective: Doing better today shortness of breath is resolving, no chest pain dizziness lightheadedness. Review of Systems Constitutional: Reports: no symptoms. Objective Last 24 Hrs of Vital Signs/I&O Vital Signs Date Time Temp Pulse Resp B/P B/P Pulse O2 O2 Flow FiO2 Mean Ox Delivery Rate 09/07 1401 98.1 99 20 111/71 94 Room Air 09/07 1053 96 Room Air Room Air 09/07 0800 96 09/07 0743 97.1 94 20 147/94 91 03/ 0000 94 Room Air 09/06 2234 98.0 95 20 109/72 94 Room Air 09/06 2207 92 Room Air 09/06 1600 Room Air 09/06 1452 98.1 97 20 98/60 92 Room Air Intake & Output 09/07 1600 09/07 0800 09/07 0000 Intake Total 480 500 Output Total Balance 480 500 Intake, Oral 480 500 Physical Exam General Appearance: Alert, Oriented X3 Other Physical Findings: Cardiovascular: Regular Rate, Normal S1, Normal S2 Lungs: Bilateral air entry equal Abdomen: Normal Bowel Sounds, Soft, No Tenderness, No Hepatospenomegaly Neurological: Strength at 5/5 X4 Ext, Normal Tone, Sensation Intact Extremities: No Edema, Normal Pulses Current Medications: Current Medications Sig/Chantel Start time Last Medication Dose Route Stop Time Status Admin Albuterol Sulfate 3 ML BID 09/07 1000 AC 09/07 INH 1053 Albuterol Sulfate 3 ML Q4 09/06 1400 DC 09/06 INH 2158 Anagrelide HCl 0.5 MG BID 09/04 2200 AC 09/07 PO 0930 Aspirin Buffered 81 MG DAILY 09/05 1000 AC 09/07 PO 0930 Azithromycin 250 MG DAILY 09/06 1000 AC 09/07 PO 0929 Benzocaine/Menthol 1 STEPHANIE Q2P PRN 09/06 0330 AC 09/07 PO 0008 Benzonatate 100 MG TID PRN 09/04 2200 AC 09/06 PO 09/07 2159 2116 Enoxaparin Sodium 40 MG DAILY 09/04 2006 AC 09/07 SC 0930 Guaifenesin 600 MG Q12 09/04 2300 AC 09/07 PO 0929 Guaifenesin/Codeine 10 ML Q6P PRN 09/05 0845 AC 09/07 Phosphate PO 0929 Hydroxyurea 1,500 MG DAILY 09/05 1000 AC 09/07 PO 0930 Ipratropium [place] 2.5 ML Q4 09/06 1400 DC INH Montelukast Sodium 10 MG QPM 09/04 2200 AC 09/06 PO 2116 Nystatin 1 VENANCIO TID 09/07 1001 AC 09/07 TOP 1158 Omeprazole 40 MG DAILY AC 09/04 2300 AC 09/07 PO 0643 Oseltamivir Phosphate 30 MG BID 09/05 1338 AC 09/07 PO 09/09 1337 0930 Prednisone 10 MG DAILY 09/09 1000 AC PO 09/09 1001 Prednisone 20 MG DAILY 09/08 1000 AC PO 09/08 1001 Prednisone 30 MG TAPER 09/07 1000 DC PO 09/10 0959 Prednisone 30 MG DAILY 09/07 1000 DC 09/07 PO 09/07 1001 0929 Prednisone 40 MG DAILY 09/06 1000 DC 09/06 PO 0920 Last 24 Hrs of Labs/Mics: Laboratory Tests 09/07/17 0723: CBC w Diff MAN DIFF ORDERED, RBC 3.23 L, MCV 119.3 H, MCH 37.4 H, MCHC 31.4 L, RDW 16.1 H, MPV 10.5 H, Gran % 95.6 H, Lymphocytes % 3.4 L, Monocytes % 0.4 L, Eosinophils % 0.6, Basophils % 0, Absolute Granulocytes 20.6 H, Absolute Lymphocytes 0.7 L, Absolute Monocytes 0.1, Absolute Eosinophils 0.1, Absolute Basophils 0, Platelet Estimate INCREASED, Polychromasia 1+, Poikilocytosis 2+, Anisocytosis 2+, Macrocytic Cells 3+, Stomatocytes 1+
--- NOTE | 2017-09-07 17:35 | Discharge Summary ---
Visit Information Visit Dates Admission Date: 09/04/17 Discharge Date: 09/08/17 Hospital Course Course Attending Physician: Celina Mack MD Primary Care Physician: Josselin Pantoja MD Hospital Course: 82 yo F with PMH of polycythemia vera, thrombocytosis, JESSICA on night time O2, cataract, glaucoma and urinary incontinence came to ED with chief complaint of worsening of productive cough for last 2 days. She was admitted and treated for Bronchitis likely secondary to Influenza: Patient presented with complains of worsening productive cough. Her CXR did not reveal any acute abnormalities. She was found to have elevated white count. Her rapid influenza test was positive for Influenza B. She was started on a course of Tamiflu (renal dosing), along with a quick Prednisone taper and Azithromycin (Z pack dosing). Patient responded well to treatment. She does have a persistent cough for which she received robitussin. She had a short hospital course without complications. She was discharged in stable disposition and recommended to follow up with her PCP and java programmer analyst within one week of discharge. Leukocytosis: She was found to have a high white count of 24.8. 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 Her old records from earlier this year in June show her white count to be 12.9. The white count is likely in the setting of infection. She was advised to have her CBC repeated in one week. DVT Prophylaxis: SC Lovenox Allergies: Coded Allergies: No Known Allergies (09/04/17) Significant Procedures: SERVICE DATE: 09/04/17 EXAM TYPE: CAT - CTA CHEST-PULMONARY EMBOLISM FINDINGS: QUALITY OF STUDY/CONTRAST BOLUS: Poor to fair. There is significant respiratory motion artifact limiting peripheral assessment. PULMONARY ARTERIES: No central or segmental pulmonary emboli. Subsegmental vessels are not evaluated. The main pulmonary artery is normal in caliber. There is mild dilatation of the central right and left pulmonary arteries. THORACIC AORTA: No aneurysm or dissection. The ascending aorta measures 3.8 cm in maximum diameter. Coronary artery calcification (LAD) is partly visualized. LUNG: No obvious consolidation or mass is identified. Mild bibasilar subsegmental atelectasis. PLEURA: No pleural effusion or pneumothorax. MEDIASTINUM: Normal heart size. No pericardial effusion. No hilar or mediastinal lymphadenopathy. No evidence of septal bowing or right heart strain. CHEST WALL/AXILLA: No axillary or internal mammary lymphadenopathy. OSSEOUS STRUCTURES: A bone island is identified at T4. Multilevel degenerative changes are seen. UPPER ABDOMEN: The visualized liver is unremarkable. There is cholelithiasis without gallbladder wall thickening or pericholecystic fluid. The spleen is enlarged measuring 14.7 cm in AP dimension. Visualized pancreas and adrenal glands are unremarkable. IMPRESSION: 1. No evidence of central pulmonary embolism or major consolidation or atelectasis. 2. The study is limited by motion. 3. Cholelithiasis without evidence of cholecystitis. Splenomegaly. VTE: Negative. SERVICE DATE: 09/04/17 EXAM TYPE: RAD - XRY-CHEST XRAY, TWO VIEWS FINDINGS: No significant abnormality is noted involving the heart, lungs, mediastinum, bony thorax or soft tissues. An incidental bone island is seen in the upper thoracic spine. IMPRESSION: Unremarkable examination. Disposition Summary Disposition Principal Diagnosis: Influenza B Bronchitis Additional Diagnosis: polycythemia vera thrombocytosis JESSICA Discharge Disposition: home or self care Discharge Instructions General Discharge Information Code Status: Full Code Patient's Diet: Regular Patient's Activity: As tolerated Follow-Up Instructions/Appts: Please follow up with your PCP and java programmer analyst within one week of discharge. Please have your CBC checked on 09/15/17 Medications at Discharge Discharge Medications: Continue taking these medications: Hydroxyurea (Hydroxyurea) 500 MG CAPSULE 3 Capsule ORAL DAILY Days = 90 Comments: LAST GIVEN 09/08/17 @ 1052 Cyclosporine (Restasis) 1 EACH DROPERETTE 1 Drop In the eye TWICE DAILY Days = 90 Comments: Last Taken: 01/24/16 Time: 0830 Timolol Maleate (Timoptic-Xe) 5 ML NIC.GEL 1 Drop Left Eye Every Morning Days = 30 Comments: Last Taken: 01/24/16 Time: 0830 Anagrelide Hydrochloride (Agrylin) 0.5 MG CAPSULE 1 Tablet ORAL TWICE DAILY Instructions: LAST GIVEN 09/08/17 @ 1052 Aspirin (Ecotrin*) 81 MG TABLET.DR 1 Tablet ORAL DAILY Comments: LAST GIVEN 09/08/17 @ 1052 Montelukast Sodium (Montelukast Sodium) 10 MG TABLET 1 Tablet ORAL Every night Qty = 30 Start taking the following new medications: Azithromycin (Azithromycin) 250 MG TABLET 1 Tablet ORAL DAILY Qty = 1 No Refills Comments: LAST GIVEN 09/08/17 @ 1052 Oseltamivir Phosphate (Tamiflu) 30 MG CAPSULE 1 Capsule ORAL TWICE DAILY Qty = 3 No Refills Comments: LAST GIVEN 09/08/17 @ 1052 Prednisone (Prednisone) 10 MG TABLET 0 ORAL As Directed Qty = 6 No Refills Comments: Please take 2 tablets of Prednisone 10mg on 09/09 and 09/10 then take 1 tablet of Prednisone 10mg on 09/11 and 09/12 Copies To: Kit LÓPEZ,Josselin Alvarado
[2017-09-07 20:47] VITALS: BP 122/77
[2017-09-08 05:52] VITALS: BP 138/87
--- NOTE | 2017-09-08 07:04 | PN- Housestaff ---
Yokasta LÓPEZ,[facility] 09/08/17 0704: Subjective Follow-up For: Influenza B Viral Bronchitis Subjective: Patient was seen and examined at bedside. She states her coughing has been persistent and has not improved significantly despite being on the cough medication. She does want to be seen by Dr Staley again today. Review of Systems Constitutional: Reports: no symptoms. Respiratory: Reports: cough. Objective Last 24 Hrs of Vital Signs/I&O Vital Signs Date Time Temp Pulse Resp B/P B/P Pulse O2 O2 Flow FiO2 Mean Ox Delivery Rate 09/08 0850 93 Room Air Room Air 09/08 0552 98.1 101 18 138/87 92 Room Air 09/07 2047 97.9 93 18 122/77 92 Room Air 09/07 1928 94 Room Air Room Air 09/07 1401 98.1 99 20 111/71 94 Room Air 09/07 1053 96 Room Air Room Air Intake & Output 09/08 1600 09/08 0800 09/08 0000 Intake Total 240 720 Output Total Balance 240 720 Intake, Oral 240 720 Physical Exam General Appearance: Alert, Oriented X3, Cooperative, Mild Distress Skin: No Rashes, No Breakdown Skin Temp/Moisture Exam: Warm/Dry Sepsis Skin Exam (color): Normal for Ethnicity HEENT: Atraumatic Cardiovascular: Normal S1, Normal S2, No Murmurs Lungs: Clear to Auscultation, Normal Air Movement Abdomen: Soft, No Tenderness Neurological: Normal Speech Extremities: No Edema Assessment/Plan Assessment: 82 yo F with PMH of polycythemia vera, thrombocytosis, JESSICA on night time O2, cataract, glaucoma and urinary incontinence came to ED with chief complaint of worsening of productive cough for last 2 days. Assessment: 1. Influenza B 2. Viral Bronchitis 3. Leukocytosis Plan: * Continue Tamiflu 30mg BID * Azithromycin 250mg to be continued for a total of 5 days (500mg on first day) * Prednisone 30mg today with taper every 2 days. * Pulm recs appreciated. * Night time oxygen if needed. Though patient states she has not needed oxygen ever since she had the nasal surgery. * She has a high white count which has been trending down. Her old records from earlier this year in June show her white count to be 12.9. This is likely elevated likely in the setting of infection. * Swallow eval was done which was not suggestive of aspiration. * Stable to be discharged today. * Diet: Regular * DVT Prophylaxis: SC Lovenox * Code: Full code Problem List: 1. Influenza B Pain Ratin Pain Location: none Pain Goal: Remain pain free Pain Plan: none Tomorrow's Labs & Rationales: none Celina Mack 09/08/17 1234: Attending MD Review Statement Attending Statement Attending MD Statement: examined this patient, discuss w/resident/PA/ENVIRONMENTAL SAFETY SPECIALIST, agreed w/resident/PA/ENVIRONMENTAL SAFETY SPECIALIST, discussed with family, reviewed EMR data (avail), discussed with nursing, discussed with case mgmt, reviewed images, amended to note Attending Assessment/Plan: The patient was seen and discussed with house staff. Due to symptoms, rapid influenza testing was done which was positive. Started on Tamuflu and will follow up pulmonary recommendations. Patient had left upper extremity swelling possible sc lovenox induced hematoma which should heal by itself. Continue tylenol few pills. Anticipate dc soon.
[2017-09-08 09:27] LABS: ABSOLUTE BASOPHIL COUNT 0.1 /CUMM (0.0-0.2); ABSOLUTE EOSINOPHIL COUNT 0.2 /CUMM (0.0-0.7); ABSOLUTE GRANULOCYTE CT 23.9 /CUMM (1.4-6.5); ABSOLUTE LYMPH COUNT 0.6 /CUMM (1.2-3.4); ABSOLUTE MONOCYTE COUNT 0.1 /CUMM (0.10-0.60); BASOPHIL % 0.2 % (0.0-2.0); EOSINOPHIL % 0.7 % (0-5); GRANULOCYTE % 96.2 % (42.2-75.2); HEMATOCRIT 40.1 % (37-47); MEAN CORPUSCULAR HGB 37.3 PG (27.0-31.0); MEAN CORPUSCULAR HGB CONC 31.4 G/DL (33.0-37.0); MEAN CORPUSCULAR VOLUME 118.8 FL (81.0-99.0); MEAN PLATELET VOLUME 10.6 FL (7.4-10.4); PLATELET COUNT 818 /CUMM (130-400); RBC DISTRIBUTION WIDTH 16.6 % (11.5-14.5); RED BLOOD CELL CT 3.37 /CUMM (4.20-5.40); WHITE BLOOD CELL COUNT 24.8 /CUMM (4.8-10.8)
[2017-09-08] MEDS ORDERED: TAMIFLU30 M1 PO ×2 (09:34→11:20)
[2017-09-08] MEDS ORDERED: AZITHROMYCIN250 M1 PO ×2 (09:34→11:20)
[2017-09-08] MEDS ORDERED: PREDNISONE10 M2 PO ×3 (09:34→11:20)
--- NOTE | 2017-09-08 12:22 | PN- Pulmonary ---
Subjective HPI/Critical Care Issues: pt seen and examined feeling better Objective Current Medications: Current Medications Sig/Chantel Start time Last Medication Dose Route Stop Time Status Admin Albuterol Sulfate 3 ML BID 09/07 1000 AC 09/08 INH 0842 Anagrelide HCl 0.5 MG BID 09/04 2200 AC 09/08 PO 1052 Aspirin Buffered 81 MG DAILY 09/05 1000 AC 09/08 PO 1052 Azithromycin 250 MG DAILY 09/06 1000 AC 09/08 PO 1051 Benzocaine/Menthol 1 STEPHANIE Q2P PRN 09/06 0330 AC 09/07 PO 0008 Benzonatate 100 MG TID PRN 09/04 2200 DC 09/06 PO 09/07 2159 2116 Diphenhydramine HCl 25 MG ONCE ONE 09/08 0730 DC 09/08 PO 09/08 0731 0813 Enoxaparin Sodium 40 MG DAILY 09/04 2006 AC 09/07 SC 0930 Guaifenesin 600 MG Q12 09/04 2300 AC 09/08 PO 1051 Guaifenesin/Codeine 10 ML Q6P PRN 09/05 0845 AC 09/08 Phosphate PO 0551 Hydroxyurea 1,500 MG DAILY 09/05 1000 AC 09/08 PO 1052 Montelukast Sodium 10 MG QPM 09/04 2200 AC 09/07 PO 2054 Nystatin 1 VENANCIO TID 09/07 1001 AC 09/08 TOP 1052 Omeprazole 40 MG DAILY AC 09/04 2300 AC 09/08 PO 0548 Oseltamivir Phosphate 30 MG BID 09/05 1338 AC 09/08 PO 09/09 1337 1052 Prednisone 10 MG DAILY 09/09 1000 CAN PO 09/09 1001 Prednisone 20 MG DAILY 09/08 1000 CAN PO 09/08 1001 Prednisone 30 MG 0945 09/08 0945 DC 09/08 PO 09/08 0946 1051 Vital Signs & I&O Last 24 Hrs of Vitals and I&O: Vital Signs Date Time Temp Pulse Resp B/P B/P Pulse O2 O2 Flow FiO2 Mean Ox Delivery Rate 09/08 0850 93 Room Air Room Air 09/08 0800 94 Part ReBreather 09/08 0552 98.1 101 18 138/87 92 Room Air 09/07 2047 97.9 93 18 122/77 92 Room Air 09/07 1928 94 Room Air Room Air 09/07 1401 98.1 99 20 111/71 94 Room Air Intake & Output 09/08 1600 09/08 0800 09/08 0000 Intake Total 240 720 Output Total Balance 240 720 Intake, Oral 240 720 Exam Other Physical Findings: Generally - Awake, alert Head and neck -nasal cannula Cardiovascular - S1, S2 Lungs - B/L rhonchi Abdomen - Bowel sounds positive, soft, non-tender Extremities - trace edema Results Last 24 Hrs of Lab Results: Laboratory Tests 09/08/17 0745: CBC w Diff MAN DIFF ORDERED, RBC 3.37 L, MCV 118.8 H, MCH 37.3 H, MCHC 31.4 L, RDW 16.6 H, MPV 10.6 H, Gran % 96.2 H, Lymphocytes % 2.5 L, Monocytes % 0.4 L, Eosinophils % 0.7, Basophils % 0.2, Absolute Granulocytes 23.9 H, Segmented Neutrophils 92 H, Band Neutrophils 1, Absolute Lymphocytes 0.6 L, Lymphocytes 4 L, Absolute Monocytes 0.1, Eosinophils 2, Absolute Eosinophils 0.2, Absolute Basophils 0.1, Myelocytes 1 H, Platelet Estimate INCREASED, Normochromic RBCs VERIFIED, Polychromasia 2+, Macrocytic Cells 3+, Stomatocytes 1+ Impression/Plan Impression/Plan Impression/Plan: Impression 82 year old woman * viral bronchitis * influenza type B Plan -leukocytosis maybe steroid related - would recommend to check CBC and f/u with PCP upon discharge -prednisone taper as ordered -okay to complete course of zpak (anti-inflammatory properties) -tamiflu course -trc/nebs -continue using o2 at night which can benefit her polycythemia DVT prophylaxis at all times
== END 2017-09-08 14:15 | DRG 194 ==
LOC: ERH 12:21 → 2NB 18:53 → ERHI 18:53 → ENRESERV 20:04 → ENTRNSPT 20:23 → 2NB 20:26 → EDTRNSPTSTS 20:32 → EDTRNSPT 20:32 → 2NB 20:35 → EDTRNSPTTYP 20:49 → CMPTRNSPT 20:50 → 2NB 09-05 08:07 → ENPENDDIS 09-08 11:25 → ENTRNSPT 09-08 14:04 → EDTRNSPTSTS 09-08 14:07 → EDTRNSPT 09-08 14:07 → 2NB 09-08 14:15 → CMPTRNSPT 09-08 14:16
PROVIDERS: Dermatology; Internal Medicine; Physician Assistant Medical; Student in an Organized Health Care Education/Training Program
DX: J10.1 Influenza due to other identified influenza virus with other respiratory manifestations (principal); J96.11 Chronic respiratory failure with hypoxia; D45 Polycythemia vera; J20.8 Acute bronchitis due to other specified organisms; G47.33 Obstructive sleep apnea (adult) (pediatric); H40.9 Unspecified glaucoma; R32 Unspecified urinary incontinence; D47.3 Essential (hemorrhagic) thrombocythemia; D72.829 Elevated white blood cell count, unspecified; H26.9 Unspecified cataract
CPT/HCPCS: 2NBP; 36415; 36592; 71046; 81001; 82436; 87040; 87804; 87804-59; 93005; 93010; 99291; J0456; J0696; J1650; J7060; J7512

== ENCOUNTER 2017-09-15 14:27 | Observation (INO) | payer OTHER, MEDICARE ==
[~2017-09-15] VITALS: Ht 157 cm; Wt 74.8 kg
[~2017-09-15 14:27] MED LIST changes: +AZITHROMYCIN250 M1 PO; +TAMIFLU30 M1 PO
[2017-09-15 17:41] LABS: ABSOLUTE BASOPHIL COUNT 0.5 /CUMM (0.0-0.2); ABSOLUTE EOSINOPHIL COUNT 0.6 /CUMM (0.0-0.7); ABSOLUTE GRANULOCYTE CT 12.6 /CUMM (1.4-6.5); ABSOLUTE LYMPH COUNT 1.5 /CUMM (1.2-3.4); ABSOLUTE MONOCYTE COUNT 2.5 /CUMM (0.10-0.60); BASOPHIL % 2.8 % (0.0-2.0); EOSINOPHIL % 3.5 % (0-5); GRANULOCYTE % 71.1 % (42.2-75.2); MEAN CORPUSCULAR HGB 36.8 PG (27.0-31.0); MEAN CORPUSCULAR VOLUME 118.7 FL (81.0-99.0); MEAN PLATELET VOLUME 10.7 FL (7.4-10.4); RBC DISTRIBUTION WIDTH 16.3 % (11.5-14.5); RED BLOOD CELL CT 3.62 /CUMM (4.20-5.40); WHITE BLOOD CELL COUNT 17.8 /CUMM (4.8-10.8)
[2017-09-15 17:54] LABS: PLATELET COUNT 1028 /CUMM (130-400)
--- NOTE | 2017-09-15 18:07 | RADIOLOGY REPORT ---
EXAMINATION:\H\ \N\XR CHEST CLINICAL INFORMATION: Cough. Malaise. COMPARISON: Chest x-ray 09/04/2017. CTA of chest 09/04/2017 TECHNIQUE: Frontal view of the chest was obtained. 5:40 PM FINDINGS: Lungs are clear. No pulmonary vascular congestion. There is no pleural effusion. The heart size is normal. The cardiac and mediastinal contours are normal. There are calcifications of the thoracic aorta. There are multilevel degenerative changes of dorsal spine. IMPRESSION: Unremarkable examination.
--- NOTE | 2017-09-15 19:13 | ED DYSPNEA/ASTHMA COMPLAINT ---
History of Present Illness General Chief Complaint: Upper Respiratory Sx/Fever Stated Complaint: FLU LIKE SYMPTOMS Source: patient, old records Exam Limitations: no limitations Vital Signs & Intake/Output Vital Signs & Intake/Output Vital Signs Date Time Temp Pulse Resp B/P B/P Pulse O2 O2 Flow FiO2 Mean Ox Delivery Rate 09/15 1449 98.5 92 20 105/73 96 Room Air Allergies Coded Allergies: No Known Allergies (09/04/17) Reconcile Medications Anagrelide Hydrochloride (Agrylin) 0.5 MG CAPSULE 1 TAB PO BID UNKNOWN ( Reported) LAST GIVEN 09/08/17 @ 1052 Aspirin (Ecotrin*) 81 MG TABLET.DR 1 TAB PO DAILY HEART/BLOOD (Reported) Azithromycin 250 MG TABLET 1 TAB PO DAILY Bronchitis Cyclosporine (Restasis) 1 EACH DROPERETTE 1 GTT OPH BID BOTH EYES (Reported) Hydroxyurea 500 MG CAPSULE 3 CAP PO DAILY PVC (Reported) Montelukast Sodium 10 MG TABLET 1 TAB PO QPM ALLERGIES (Reported) Oseltamivir Phosphate (Tamiflu) 30 MG CAPSULE 1 CAP PO BID Influenza Prednisone 10 MG TABLET 0 PO AD Shortness of Breath Timolol Maleate (Timoptic-Xe) 5 ML NIC.GEL 1 GTT OS QAM LEFT EYE (Reported) Triage Note: STATES SHE WAS HERE LAST WEEK AND ADMITTED FOR COUGHING. SHE SAID SHE HAD THE FLU AND STAYED HERE FOR 3 DAYS. STATES SINCE BEING HOME SHE IS FEELING WORSE, STATES SHE IS TAKING COUGH MEDICINE WHICH HELPS A LITTLE. C/O WEAKNESS, PRODUCTIVE COUGH Triage Nurses Notes Reviewed? yes Onset: Abrupt Duration: day(s): Timing: recent history Severity: moderate, severe HPI: Pt is a 82 yo WF with a PMH of polycythemia vera, thrombocytosis, EJSSICA on nightly O2, glaucoma, cataracts, who was recently d/c'ed from on 09/08/2017 for bronchitis 2/2 influenza. She was prescribed prednisone PRN for SOB, azithromycin, and tamiflu upon discharge. Pt states she was told to report to the ED by today after she informed him her symptoms have not improved since being discharged. Pt states she continues to feel extremeley fatigued and weak. She continues to have a cough productive of clear-yellow phlegm. She denies SOB, STEWART, CP, fevers, chills, abdominal pain, N/V/D, hematuria, melena, hemoptysis. (Jairo Madrid) Past History Travel History Traveled to [place] past 21 day No Medical History Any Pertinent Medical History? see below for history Neurological: NONE EENT: cataracts, glaucoma, Retinal Detatchment Cardiovascular: NONE Respiratory: pneumonia Gastrointestinal: NONE Hepatic: NONE Renal: urinary incontinence Musculoskeletal: NONE Psychiatric: NONE Endocrine: NONE Blood Disorders: POLYCYTHEMIA VERA thrombocytosis Cancer(s): NONE CREDIT ASSISTANT/Reproductive: NONE History of MRSA: No History of VRE: No History of CDIFF: No Surgical History Surgical History: N nasal surgery (nasal surgery) Psychosocial History Who do you live with Patient/Self Services at Home None What is your primary language Moroccan Tobacco Use: Never used ETOH Use: occasional use Illicit Drug Use: denies illicit drug use Family History Family History, If Any: MOTHER FH: diabetes mellitus SISTER FH: diabetes mellitus Hx Contributory? No (Jairo Madrid) Review of Systems Review of Systems Constitutional: Reports: malaise, weakness. Denies: chills, diaphoresis, fever. EENTM: Denies: see HPI. Respiratory: Denies: see HPI. Cardiovascular: Denies: chest pain, edema. GI: Denies: abdominal pain, diarrhea, distention, melena, nausea, vomiting. Genitourinary: Denies: dysuria, frequency, hematuria, pain. Musculoskeletal: Denies: no symptoms. Neurological/Psychological: Denies: confusion, headache. Hematologic/Endocrine: Reports: bruising. Denies: bleeding, polyuria, polydipsia. (Jairo Madrid) Physical Exam Physical Exam General Appearance: well developed/nourished, alert, awake, mild distress Head: atraumatic, normal appearance Eyes: Bilateral: normal appearance. Ears, Nose, Throat: normal ENT inspection, hearing grossly normal Neck: normal inspection Respiratory: no respiratory distress, decreased breath sounds Cardiovascular: regular rate/rhythm Extremities: normal inspection Neurologic/Psych: awake, alert, oriented x 3 Skin: intact, normal color Core Measures ACS in differential dx? No CVA/TIA Diagnosis No Sepsis Present: No Sepsis Focused Exam Completed? No (Jairo Madrid) Progress Differential Diagnosis: asthma, AMI, bronchitis, costochondritis, CHF, COPD, musculoskeletal pain, pericarditis, pulmonary embolism, pneumonia, pneumothorax, rib fracture, unstable angina Plan of Care: Orders Procedure Date/time Status Heart Healthy Diet 09/[address] in observation 09/15 2037 Active ED Holding Orders 09/15 2037 Active Vital Signs 09/15 2037 Active Code Status 09/15 2037 Active Add-on Test (ER Only) 09/16 1911 Active EKG 09/16 1911 Active TROPONIN LEVEL 09/15 172 Complete COMPREHENSIVE METABOLIC PANEL 09/16 1707 Complete CBC WITHOUT DIFFERENTIAL 09/16 1707 Complete RAPID VIRAL INFLUENZA A 09/15 143 Complete Current Medications Sig/Chantel Start time Last Medication Dose Stop Time Status Admin Sodium Chloride 1,000 ML ONCE ONE 09/15 2014 AC (Normal Saline 0.9%) 09/16 0934 Laboratory Tests 09/15/17 1721: Anion Gap 11, Estimated GFR 60, BUN/Creatinine Ratio 31.1 H, Glucose 87, Calcium 9.3, Total Bilirubin 0.7, AST 28, ALT 34, Alkaline Phosphatase 70, Troponin I < 0.01, Total Protein 7.4, Albumin 3.8, Globulin 3.6, Albumin/ Globulin Ratio 1.1, CBC w Diff MAN DIFF ORDERED, RBC 3.62 L, MCV 118.7 H, MCH 36.8 H, MCHC 31.0 L, RDW 16.3 H, MPV 10.7 H, Gran % 71.1, Lymphocytes % 8.4 L, Monocytes % 14.2 H, Eosinophils % 3.5, Basophils % 2.8 H, Absolute Granulocytes 12.6 H, Segmented Neutrophils 88 H, Band Neutrophils 2, Absolute Lymphocytes 1.5, Lymphocytes 2 L, Monocytes 3, Absolute Monocytes 2.5 H, Eosinophils 3, Absolute Eosinophils 0.6, Basophils 2, Absolute Basophils 0.5, Nucleated RBCs 1 H, Platelet Estimate VERIFIED BY SMEAR, Polychromasia 1+, Anisocytosis 2+, Macrocytic Cells 2+, Fld Total RBCs Counted 100 Microbiology 09/15 1621 NASOPHARYN: Influenza Virus A & B Rapid Smear - COMP Diagnostic Imaging: Viewed by Me: Radiology Read. Discussed w/RAD: Radiology Read. Radiology Impression: PATIENT: BELEN YEAGER PRESENT AGE: 82 PATIENT ACCOUNT NO: [id number] : 33 LOCATION: [facility] ORDERING PHYSICIAN: Lala CORONA SERVICE DATE: 03 EXAM TYPE: RAD - XRY-CHEST XRAY, SINGLE VIEW EXAMINATION:\H\ \N\XR CHEST CLINICAL INFORMATION: Cough. Malaise. COMPARISON: Chest x-ray 09/04/2017. CTA of chest TECHNIQUE: Frontal view of the chest was obtained. 5:40 PM FINDINGS: Lungs are clear. No pulmonary vascular congestion. There is no pleural effusion. The heart size is normal. The cardiac and mediastinal contours are normal. There are calcifications of the thoracic aorta. There are multilevel degenerative changes of dorsal spine. IMPRESSION: Unremarkable examination. DICTATED BY: Joe Serrano MD DATE/TIME DICTATED:09/15/171801 TRANSPORT MEDIC:SUZANNE DATE/TIME TRANSCRIBED:09/15/171801 CONFIDENTIAL, DO NOT COPY WITHOUT APPROPRIATE AUTHORIZATION. <Electronically signed in Other Vendor System> SIGNED BY: Joe Serrano MD 09/15/171806 Initial ED EKG: normal sinus rhythm, rate (84) (Jairo Madrid) Departure Departure Disposition: STILL A PATIENT Condition: Stable Clinical Impression Primary Impression: Bronchitis Secondary Impressions: Leukocytosis, Weakness Referrals: Kit LÓPEZ,Josselin Alvarado (PCP/Family) Departure Forms: Customer Survey General Discharge Information Observation Note Spoke With: Ginger Flynn MD Physician Advisor Notified: OLIVIA LÓPEZ,SANDRA Sal Place Patient In: Non-ED OBS Care Area Rationale for Observation: My rational for observation is as follows . Increasingly weak. Failed outpatient treatment. Require supplemental O2. Pulmonary consultation. Potentially different antibiotic regimen. Infectious disease consultation. Elevated white blood cell count. PT consult. Case management consultation. (Jairo Madrid) PA/GRAB DRIVER Co-Sign Statement Statement: ED Attending supervision documentation- [X] I saw and evaluated the patient. I have also reviewed all the pertinent lab results and diagnostic results. I agree with the findings and the plan of care as documented in the PA's/GRAB DRIVER's documentation. [X] I have reviewed the ED Record and agree with the PA's/GRAB DRIVER's documentation. [] Additions or exceptions (if any) to the PAs/GRAB DRIVER's note and plan are summarized below: [Patient to be admitted for failed outpatient therapy. Call pulmonary consult, steroids, antibiotics] (Elier LÓPEZ,Red.) Critical Care Note Critical Care Note Critical Care Time: non-applicable (Golden CORONA,Jairo)
--- NOTE | 2017-09-15 21:33 | History & Physical ---
[facility] 09[facility]: General Information and HPI MD Statement: I have seen and personally examined BELEN YEAGER and documented this H&P. The patient is a 82 year old F who presented with a patient stated chief complaint of generalized weakness with productive cough []. Source of Information: patient, old records Exam Limitations: no limitations History of Present Illness: 82 YO F with PMH of polycythemia vera, thrombocytosis, JESSICA on night time O2, cataract, glaucoma and urinary incontinence came to ED with chief complaint of worsening generalized weakness with productive cough for last couple of days. According to patient she had been discharged from hospital 1 week back, when she was treated for influenza with Tamiflu and completed a course of azithromycin. Patient reported that patient reported that she has cough with clear to yellow colored sputum. Patient denied any chest pain, headache, palpitation, diarrhea, constipation, belly pain, lightheadedness, nausea, vomiting, chills, fever and dysuria. Last time patient was admitted [facility] one and half weeks back with productive cough and treated for acute bronchitis and later on her flu test was positive and she got Tamiflu. ED course: Vitals: Temperature 98.5, pulse 92, respiratory rate 20, blood pressure 105/73, oxygen saturation 96% on room air Labs: WBC count 17.8, hemoglobin 13.3, hematocrit 43.0, platelet count 1023, sodium 141, potassium 4.6, BUN 28, creatinine 0.9, anion gap 11, BUNs/creatinine ratio 31.1, glucose 87, calcium 9.3, AST 28, ALT 34, troponin less than 0.01 Patient was given normal saline in ED Flu test is negative Allergies/Medications Allergies: Coded Allergies: No Known Allergies (09/04/17) Past History Travel History Traveled to [place] past 21 day No Medical History Neurological: NONE EENT: cataracts, glaucoma, Retinal Detatchment Cardiovascular: NONE Respiratory: pneumonia Gastrointestinal: NONE Hepatic: NONE Renal: urinary incontinence Musculoskeletal: NONE Psychiatric: NONE Endocrine: NONE Blood Disorders: POLYCYTHEMIA VERA thrombocytosis Cancer(s): NONE GEOSPATIAL SYSTEMS INTEGRATOR/Reproductive: NONE History of MRSA: No History of VRE: No History of CDIFF: No Surgical History Surgical History: N nasal surgery (nasal surgery) Past Family/Social History Family History Relations & Conditions if any MOTHER FH: diabetes mellitus SISTER FH: diabetes mellitus Psychosocial History Who Do You Live With? self Services at Home: None Primary Language: Indonesian ETOH Use: occasional use Illicit Drug Use: denies illicit drug use Living Will? unknown Power of Critical Care Clinical Nurse Specialist/HCP? Patient deffered her - [place] Functional Ability ADLs Independent: dressing, eating, toileting, bathing. Ambulation: walker Review of Systems Review of Systems Constitutional: Reports: weakness. EENTM: Reports: no symptoms. Cardiovascular: Reports: no symptoms. Respiratory: Reports: cough, sputum production. GI: Reports: no symptoms. Genitourinary: Reports: no symptoms. Musculoskeletal: Reports: see HPI. Skin: Reports: no symptoms. Neurological/Psychological: Reports: no symptoms. Hematologic/Endocrine: Reports: no symptoms. Exam & Diagnostic Data Last 24 Hrs of Vital Signs/I&O Vital Signs Date Time Temp Pulse Resp B/P B/P Pulse O2 O2 Flow FiO2 Mean Ox Delivery Rate 09/15 1449 98.5 92 20 105/73 96 Room Air Intake & Output 09/15 1600 09/15 0800 09/15 0000 Intake Total Output Total Balance Patient 165 lb Weight Weight Reported by Patient Measurement Method Physical Exam General Appearance Alert, Oriented X3, Cooperative Skin No Rashes Skin Temp/Moisture Exam: Warm/Dry Sepsis Skin Exam (color): Normal for Ethnicity HEENT Atraumatic, PERRLA, EOMI Neck Supple Cardiovascular Normal S1, Normal S2 Lungs Clear to Auscultation Abdomen Soft, No Tenderness Neurological Normal Speech, Strength at 5/5 X4 Ext, Normal Tone, Sensation Intact Extremities No Edema, B/L heel healing ulcers with scabs Last 24 Hrs of Labs/Arturo: Laboratory Tests 09/15/17 1721: Anion Gap 11, Estimated GFR 60, BUN/Creatinine Ratio 31.1 H, Glucose 87, Calcium 9.3, Total Bilirubin 0.7, AST 28, ALT 34, Alkaline Phosphatase 70, Troponin I < 0.01, Total Protein 7.4, Albumin 3.8, Globulin 3.6, Albumin/ Globulin Ratio 1.1, CBC w Diff MAN DIFF ORDERED, RBC 3.62 L, MCV 118.7 H, MCH 36.8 H, MCHC 31.0 L, RDW 16.3 H, MPV 10.7 H, Gran % 71.1, Lymphocytes % 8.4 L, Monocytes % 14.2 H, Eosinophils % 3.5, Basophils % 2.8 H, Absolute Granulocytes 12.6 H, Segmented Neutrophils 88 H, Band Neutrophils 2, Absolute Lymphocytes 1.5, Lymphocytes 2 L, Monocytes 3, Absolute Monocytes 2.5 H, Eosinophils 3, Absolute Eosinophils 0.6, Basophils 2, Absolute Basophils 0.5, Nucleated RBCs 1 H, Platelet Estimate VERIFIED BY SMEAR, Polychromasia 1+, Anisocytosis 2+, Macrocytic Cells 2+, Fld Total RBCs Counted 100 Microbiology 09/15 1621 NASOPHARYN: Influenza Virus A & B Rapid Smear - COMP Assessment/Plan Assessment: 82 YO F with PMH of polycythemia vera, thrombocytosis, JESSICA on night time O2, cataract, glaucoma and urinary incontinence came to ED with chief complaint of worsening generalized weakness with productive cough for last couple of days. We will keep the patient under observation to treat for post flu syndrome. Post flu syndrome: -TRC nebulization as needed -Mucinex -IV pain medications -If patient spikes fever then we will consider CT scan without contrast to rule out post flu pneumonia -We will treat the patient with antibiotics if it's post flu pneumonia. -Pulmonology consult -Sputum culture History of polycythemia: -Continue hydroxyurea History of thrombocytosis: -Continue Agrylin DVT prophylaxis: Mechanical and subcutaneous heparin CODE STATUS: Full code As Ranked By This Provider Problem List: 1. Weakness Core Measures/Misc (03/09) Acute Coronary Syndrome ACS Diagnosis: No Congestive Heart Failure Congestive Heart Failure Diagnosis No Cerebrovascular Accident CVA/TIA Diagnosis: No VTE (View Protocol) VTE Risk Factors Age>40 No Mechanical VTE Prophylaxis d/t N/A MechProphylax Ordered No VTE Pharm Prophylaxis d/t NA PharmProphylax ordered Sepsis (View protocol) Sepsis Present: No KevinNahomy 09/15/17 2330: General Information and HPI Allergies/Medications Home Med list Anagrelide Hydrochloride (Agrylin) 0.5 MG CAPSULE 1 TAB PO BID UNKNOWN ( Reported) LAST GIVEN 09/08/17 @ 1052 Aspirin (Ecotrin*) 81 MG TABLET.DR 1 TAB PO DAILY HEART/BLOOD (Reported) Cyclosporine (Restasis) 1 EACH DROPERETTE 1 GTT OPH BID BOTH EYES (Reported) Hydroxyurea 500 MG CAPSULE 3 CAP PO DAILY PVC (Reported) Montelukast Sodium 10 MG TABLET 1 TAB PO QPM ALLERGIES (Reported) Timolol Maleate (Timoptic-Xe) 5 ML NIC.GEL 1 GTT OS QAM LEFT EYE (Reported) Resident Review Statement Resident Statement: examined this patient, discussed with pricing intern, agreed with pricing intern Other Findings: Patient is 82-year-old female with past medical history significant for thrombocytosis, polycythemia vera, her sleep apnea, recently admitted at [facility] with acute bronchitis and influenza came with chief complaint of worsening lethargy, weakness and persistent cough. Patient already completed a course of Tamiflu and antibiotics but still feeling very fatigued, lethargic and has persistent productive cough with clear to yellowish in color. She denied any fever, chills, chest pain, headache, any urinary or bowel complaints. Her vital signs on admission were temperature 98.5, pulse 92, respiratory rate 20, blood pressure 105/73 and she was saturating 96% on room air. Labs at admission were WBC count 17.8, hemoglobin 13.3, platelet count 1023, hematocrit 43, sodium 141, potassium 4.6, BUN 28 and creatinine 0.9. Chest x-ray was negative for any acute pathology On examination Patient is alert and oriented 3 Head atraumatic Neck supple no JVD Chest clear to auscultate Heart S1-S2 normal no added sounds Abdomen soft with no organomegaly and normal bowel sounds Extremities showed no edema, chronic non-draining heel ulcers Neurological deficit noted Assessment and plan 82-year-old female with recent history of influenza and past medical history of thrombocytosis, polycythemia vera and came with persistent cough, lethargy and weakness most likely due to post influenza syndrome. Problem list 1. Recent history of influenza 2. Worsening lethargy and weakness 3. History of polycythemia vera History of obstructive sleep apnea Plan 1. We will keep patient in observation for 23 hours on general medical floor 2. we will monitor her cbc and basic electrolyte panel 3. We will give her symptomatic treatment with Tessalon and Robitussin. 4. We will continue her home medications 5. Pulmonary evaluation by Dr. Staley in a.m. and will consider CT chest to rule out pneumonia patient is full code Pharmacological DVT prophylaxis heart healthy diet RinaValentinestanley 09/16/17 0320: Attending MD Review Statement Attending Statement Attending MD Statement: examined this patient, discuss w/resident/PA/CARDIOLOGY RN, agreed w/resident/PA/CARDIOLOGY RN, reviewed EMR data (avail), reviewed images, amended to note Attending Assessment/Plan: CC: Persistent productive cough PMH: Polycythemia vera, retinal detachment left eye, seasonal allergies, JESSICA on suggested night time 02, but not using Patient was admitted from September 04 until September 08 for influenza. She Was treated with azithromycin and Tamiflu along with prednisone taper. She completed the treatment upon discharge but was not getting better. Productive cough persisted and it was very bothersome to her so she came back to ER again. She denies any fever spike at home or chills, no pleuritic chest pain. She denies any sinus congestion, nasal discharge, throat pain, sore throat, chest pain, chest congestion, palpitations. No smoking history, no passive smoking exposure. Vitals: Afebrile, pulse 90s, RR 20, blood pressure 105/73, saturating well on room air. On exam: A O 3, cooperative, no acute distress, pupils unequal, left pupil irregular, reactive. Neck supple, JVD normal, no lymphadenopathy, mucosa moist, no pharyngeal congestion, no focal neurological deficit, no dependent edema, no obvious skin rashes or inflammation, except small ulcer on right heel, noninfected CVS: S1-S2, RRR. RS: Clear to auscultate bilaterally. Abdomen: Soft, NT, ND, bowel sounds present. CXR: Unremarkable examination. Assessment and plan 82-year-old female with past medical history significant for polycythemia, JESSICA and seasonal allergies presented in ER for persistent productive cough. Patient was recently admitted to hospital for similar complaints from September 04 until September 08, was diagnosed to have influenza and was treated with Tamiflu and azithromycin and prednisone taper. She completed the treatment but her symptoms persisted so she came back to ER. She also endorses associated wheezing intermittently but denies any fever or chills at home, chest pain, chest tightness, nasal congestion or discharge. Auscultation unremarkable. Her WBC is trending down. Chest x-ray unremarkable, I personally reviewed the films: right lower lobe may have some infiltrate but which is unchanged from previous x-ray and CT scan done at that time was normal. This could be upper airway cough syndrome after recent viral infection and it may take time to resolve, requiring supportive care. There is a possibility that patient may develop post influenza pneumonia but at this point patient does not have any significant fever, WBC trending down. We will Hold off antibiotics. + Upper airway cough syndrome after recent viral infection + History of PV, JESSICA - Place in observation general medicine - Continue TRC nebs - Continue Tesrickeyon Perles - Continue Mucinex - Watch off antibiotics - Continue on her home medications - Inform Dr. Staley, patient requests - Patient may need antibiotics, and repeat CT chest without IV contrast if fever spike, to rule out developing pneumonia
[2017-09-16 06:18] LABS: ABSOLUTE BASOPHIL COUNT 0 /CUMM (0.0-0.2); ABSOLUTE EOSINOPHIL COUNT 0.6 /CUMM (0.0-0.7); ABSOLUTE GRANULOCYTE CT 16.9 /CUMM (1.4-6.5); ABSOLUTE LYMPH COUNT 0.4 /CUMM (1.2-3.4); ABSOLUTE MONOCYTE COUNT 0.1 /CUMM (0.10-0.60); BASOPHIL % 0.1 % (0.0-2.0); EOSINOPHIL % 3.3 % (0-5); GRANULOCYTE % 93.7 % (42.2-75.2); HEMATOCRIT 38.6 % (37-47); MEAN CORPUSCULAR HGB 37.2 PG (27.0-31.0); MEAN CORPUSCULAR HGB CONC 31.3 G/DL (33.0-37.0); MEAN PLATELET VOLUME 9.4 FL (7.4-10.4); PLATELET COUNT 949 /CUMM (130-400); RBC DISTRIBUTION WIDTH 16.4 % (11.5-14.5); RED BLOOD CELL CT 3.24 /CUMM (4.20-5.40)
[2017-09-16 08:06] VITALS: BP 128/79
--- NOTE | 2017-09-16 09:49 | PN-Observation ---
See Addendum Observation Note Observation Note _ I have personally examined BELEN PHILIP. her disposition is uncertain at this time. Before a determination can be made, she requires continued observation for the following reasons [Cough]. Assessment/Plan Medical Assessment: Ms. Philip is a 82-year-old female with past medical history of polycythemia vera followed by Dr. Davey, retinal detachment left eye, seasonal allergies, JESSICA on suggested night time 02 but not using who presents with cough. Problem list: 1. Postviral cough 2. Thrombocytosis #Postviral cough: Patient was recently admitted for influenza. Now has persistent cough without fever. She does have leukocytosis but has history of malignancy. -If febrile, culture and consider starting antibiotics -Benzotanate, montelukast, guaifenesin -Appreciate pulmonology recommendations #Thrombocytosis: Patient has history of polycythemia vera and now has significantly elevated platelets as well. May be reactive versus malignancy. -Consult Dr. Davey #Chronic medical problems: -Continue home medications DVT prophylaxis with enoxaparin Heart healthy diet Full code Problem List: 1. Post-viral cough syndrome DVT/Prophylaxis: mechanical, pharmacological Discharge Plan Anticipated Discharge (Day): tomorrow Subjective Follow-up For: post viral cough Subjective: Admitted last night for cough. Patient still coughing this morning with some clear sputum. No fevers, SOB, or other complaints. does have URI. Review of Systems Constitutional: Reports: see HPI. Respiratory: Reports: see HPI. Objective Last 24 Hrs of Vital Signs/I&O Vital Signs Date Time Temp Pulse Resp B/P B/P Pulse O2 O2 Flow FiO2 Mean Ox Delivery Rate 09/16 0806 97.1 83 20 128/79 96 Room Air 09/16 0803 96 Room Air 09/16 0739 97.1 83 20 128/79 96 Room Air 09/16 0608 96.9 83 20 130/78 95 Room Air 09/16 0004 98.1 91 20 111/66 97 Room Air 09/15 1910 98.2 94 17 111/67 97 Room Air 09/15 1449 98.5 92 20 105/73 96 Room Air Intake & Output 09/16 1600 09/16 0800 09/16 0000 Intake Total 1000 Output Total Balance 1000 Intake, IV 1000 Patient 74.84 kg Weight Physical Exam General Appearance: Alert, Oriented X3, Cooperative, No Acute Distress HEENT: EOMI, Mucous Membr. moist/pink Cardiovascular: Regular Rate, Normal S1, Normal S2 Lungs: Clear to Auscultation Abdomen: Normal Bowel Sounds, Soft, No Tenderness Extremities: Normal Pulses
[2017-09-16 14:31] VITALS: BP 116/60
--- NOTE | 2017-09-16 15:09 | Cons- Pulmonary ---
General Information and HPI Consulting Request Date of Consult: 09/16/17 Requested By: Dr. Flynn Reason for Consult: cough Source of Information: patient Exam Limitations: no limitations History of Present Illness: 82 year old woman known to me from the office. Recent admission for Influenza type B. She sees me for nocturnal hypoxemia/chronic hypoxemic respiratory failure. Nocturnal pulse oximetry 04/2016 80% lowest and 72 minutes below 89%. Has had a nasal lesion and s/p excision, hence has not used nocturnal o2. History of PCV. Recently had a CTA without PE or evidence of pneumonia. Feeling better overall, still with leukocytosis. Feeling better, residual cough, non-productive. Allergies/Medications Allergies: Coded Allergies: No Known Allergies (09/04/17) Home Med List: Anagrelide Hydrochloride (Agrylin) 0.5 MG CAPSULE 1 TAB PO BID UNKNOWN ( Reported) LAST GIVEN 09/08/17 @ 1052 Aspirin (Ecotrin*) 81 MG TABLET.DR 1 TAB PO DAILY HEART/BLOOD (Reported) Cyclosporine (Restasis) 1 EACH DROPERETTE 1 GTT OPH BID BOTH EYES (Reported) Hydroxyurea 500 MG CAPSULE 3 CAP PO DAILY PVC (Reported) Montelukast Sodium 10 MG TABLET 1 TAB PO QPM ALLERGIES (Reported) Timolol Maleate (Timoptic-Xe) 5 ML NIC.GEL 1 GTT OS QAM LEFT EYE (Reported) Current Medications: Current Medications Sig/Chantel Start time Last Medication Dose Route Stop Time Status Admin Anagrelide HCl 0.5 MG BID 09/16 1000 AC 09/16 PO 1018 Aspirin Buffered 81 MG DAILY 09/16 1000 AC 09/16 PO 1018 Benzonatate 100 MG TID 09/15 2245 AC 09/16 PO 1018 Cyclosporine 1 GTT BID 09/16 1000 AC 09/16 OPH 1018 Enoxaparin Sodium 40 MG DAILY 09/16 1000 AC 09/16 SC 1018 Guaifenesin 0 .STK-MED ONE 09/16 0759 DC PO Guaifenesin 10 ML Q4P PRN 09/15 2245 AC 09/16 PO 1451 Hydroxyurea 1,500 MG DAILY 09/16 1000 AC 09/16 PO 1018 Lactated Ringer's 1,000 ML ONCE ONE 09/16 1100 AC 09/16 IV 09/16 2058 1114 Montelukast Sodium 10 MG QPM 09/16 2200 AC PO Sodium Chloride 1,000 ML ONCE ONE 09/15 2015 DC 09/15 IV 09/16 0934 2116 Timolol Maleate 1 GTT QAM 09/16 1000 AC 09/16 OPH 1018 Review of Systems Comments 18 point review of systems was performed and reviewed. Please see pertinent positives and pertinent negatives in the HPI. Otherwise ROS is negative. Past History Travel History Traveled to [place] past 21 day No Medical History Blood Transfusion Hx: No Neurological: NONE EENT: cataracts, glaucoma, Retinal Detatchment Cardiovascular: NONE Respiratory: pneumonia Gastrointestinal: NONE Hepatic: NONE Renal: urinary incontinence Musculoskeletal: NONE Psychiatric: NONE Endocrine: NONE Blood Disorders: POLYCYTHEMIA VERA thrombocytosis Cancer(s): NONE MANAGER EQUITY/Reproductive: NONE Surgical History Surgical History: none (nasal surgery), nasal surgery Family History Relations & Conditions If Any: MOTHER FH: diabetes mellitus SISTER FH: diabetes mellitus Psychosocial History Who Do You Live With? self Services at Home: None Primary Language: Syrian Smoking Status: Never Smoked ETOH Use: occasional use Illicit Drug Use: denies illicit drug use Living Will? unknown Power of Field Installer/HCP? Patient deffered her - [place] Functional Ability ADLs Independent: dressing, eating, toileting, bathing. Ambulation: walker Exam & Diagnostic Data Last 24 Hrs of Vital Signs/I&O Vital Signs Date Time Temp Pulse Resp B/P B/P Pulse O2 O2 Flow FiO2 Mean Ox Delivery Rate 09/16 1431 97.8 83 20 116/60 93 Room Air 09/16 1306 98.5 85 18 98/55 93 Room Air 09/16 1110 98.0 88 20 121/64 95 Room Air 09/16 0806 97.1 83 20 128/79 96 Room Air 09/16 0803 96 Room Air 09/16 0739 97.1 83 20 128/79 96 Room Air 09/16 0608 96.9 83 20 130/78 95 Room Air 09/16 0004 98.1 91 20 111/66 97 Room Air 09/15 1910 98.2 94 17 111/67 97 Room Air Intake & Output 09/16 1600 09/16 0800 09/16 0000 Intake Total 1000 Output Total Balance 1000 Intake, IV 1000 Patient 165 lb Weight Physical Exam Other Physical Findings: Generally - Awake, alert Head and neck -nasal cannula Cardiovascular - S1, S2 Lungs - B/L rhonchi Abdomen - Bowel sounds positive, soft, non-tender Extremities - trace edema Last 48 Hrs of Labs/Arturo: Laboratory Tests 09/16/17 0655: Urine Color YEL, Urine Clarity CLEAR, Urine pH 6.0, Ur Specific [place] 1.020, Urine Protein TRACE H, Urine Ketones NEG, Urine Nitrite NEG, Urine Bilirubin NEG, Urine Urobilinogen 0.2, Ur Leukocyte Esterase TRACE H, Ur Microscopic SEDIMENT EXAMINED, Urine WBC RARE, Ur Epithelial Cells RARE, Urine Hemoglobin NEG, Urine Glucose NEG 09/16/17 0600: Anion Gap 9, Estimated GFR 60, BUN/Creatinine Ratio 28.9 H, CBC w Diff MAN DIFF ORDERED, RBC 3.24 L, MCV 119.0 H, MCH 37.2 H, MCHC 31.3 L, RDW 16.4 H, MPV 9.4, Gran % 93.7 H, Lymphocytes % 2.3 L, Monocytes % 0.6 L, Eosinophils % 3.3 , Basophils % 0.1, Absolute Granulocytes 16.9 H, Segmented Neutrophils 88 H, Band Neutrophils 3, Absolute Lymphocytes 0.4 L, Lymphocytes 5 L, Monocytes 2, Absolute Monocytes 0.1, Eosinophils 2, Absolute Eosinophils 0.6, Absolute Basophils 0, Nucleated RBCs 1 H, Platelet Estimate INCREASED, Polychromasia 1+, Basophilic Stippling RARE, Anisocytosis 1+, Stomatocytes 1+, Elliptocytes FEW 09/15/17 1721: Anion Gap 11, Estimated GFR 60, BUN/Creatinine Ratio 31.1 H, Glucose 87, Calcium 9.3, Total Bilirubin 0.7, AST 28, ALT 34, Alkaline Phosphatase 70, Troponin I < 0.01, Total Protein 7.4, Albumin 3.8, Globulin 3.6, Albumin/ Globulin Ratio 1.1, CBC w Diff MAN DIFF ORDERED, RBC 3.62 L, MCV 118.7 H, MCH 36.8 H, MCHC 31.0 L, RDW 16.3 H, MPV 10.7 H, Gran % 71.1, Lymphocytes % 8.4 L, Monocytes % 14.2 H, Eosinophils % 3.5, Basophils % 2.8 H, Absolute Granulocytes 12.6 H, Segmented Neutrophils 88 H, Band Neutrophils 2, Absolute Lymphocytes 1.5, Lymphocytes 2 L, Monocytes 3, Absolute Monocytes 2.5 H, Eosinophils 3, Absolute Eosinophils 0.6, Basophils 2, Absolute Basophils 0.5, Nucleated RBCs 1 H, Platelet Estimate VERIFIED BY SMEAR, Polychromasia 1+, Anisocytosis 2+, Macrocytic Cells 2+, Fld Total RBCs Counted 100 Microbiology 09/15 1621 NASOPHARYN: Influenza Virus A & B Rapid Smear - COMP Assessment/Plan Impression/Plan: Impression 82 year old woman * viral bronchitis * recent influenza type B Plan -recently completed zpak and prednisone, no obvious need at this time -recently completed tamiflu course -would watch off abx -trc/nebs -continue using o2 at night which can benefit her polycythemia DVT prophylaxis at all times Consult Acknowledgment - Thank you for your consult request.
[2017-09-16 22:23] VITALS: BP 132/80
[2017-09-17 06:37] VITALS: BP 130/76
--- NOTE | 2017-09-17 06:58 | Cons- Hematology ---
General Information and HPI Consulting Request Date of Consult: 09/17/17 Requested By: Martina LÓPEZ,Celina History of Present Illness: 82-year-old woman well known to me with polycythemia vera now admitted with persistent cough. Patient recently was diagnosed with influenza and treated with chemotherapy. The patient's polycythemia been treated with low dose anagrelide and hydroxyurea. She is Intolerant of increased doses of either medicine. Currently the patient's biggest complaint is cough. Denies headaches dizziness or increased bleeding or bruising. Allergies/Medications Allergies: Coded Allergies: No Known Allergies (09/04/17) Home Med List: Anagrelide Hydrochloride (Agrylin) 0.5 MG CAPSULE 1 TAB PO BID UNKNOWN ( Reported) LAST GIVEN 09/08/17 @ 1052 Aspirin (Ecotrin*) 81 MG TABLET.DR 1 TAB PO DAILY HEART/BLOOD (Reported) Cyclosporine (Restasis) 1 EACH DROPERETTE 1 GTT OPH BID BOTH EYES (Reported) Hydroxyurea 500 MG CAPSULE 3 CAP PO DAILY PVC (Reported) Montelukast Sodium 10 MG TABLET 1 TAB PO QPM ALLERGIES (Reported) Timolol Maleate (Timoptic-Xe) 5 ML NIC.GEL 1 GTT OS QAM LEFT EYE (Reported) Current Medications: Current Medications Sig/Chantel Start time Last Medication Dose Route Stop Time Status Admin Albuterol Sulfate 3 ML Q4P PRN 09/16 2030 AC INH Anagrelide HCl 0.5 MG BID 09/16 1000 AC 09/16 PO 2148 Aspirin Buffered 81 MG DAILY 09/16 1000 AC 09/16 PO 1018 Benzocaine/Menthol 1 STEPHANIE Q2P PRN 09/17 0500 AC 09/17 PO 0623 Benzonatate 100 MG TID 09/15 2245 AC 09/16 PO 2148 Cyclosporine 1 GTT BID 09/16 1000 AC 09/16 OPH 2149 Enoxaparin Sodium 40 MG DAILY 09/16 1000 AC 09/16 SC 1018 Guaifenesin 10 ML .STK-MED ONE 09/16 2039 DC PO 09/16 2040 Guaifenesin 10 ML .STK-MED ONE 09/16 1449 DC PO 09/16 1450 Guaifenesin 0 .STK-MED ONE 09/16 0759 DC PO Guaifenesin 10 ML Q4P PRN 09/15 2245 AC 09/16 PO 2040 Hydroxyurea 1,500 MG DAILY 09/16 1000 AC 09/16 PO 1018 Lactated Ringer's 1,000 ML ONCE ONE 09/16 1100 DC 09/16 IV 09/16 2059 1114 Montelukast Sodium 10 MG QPM 09/16 2200 AC 09/16 PO 2148 Sodium Chloride 1,000 ML ONCE ONE 09/15 2015 DC 09/15 IV 09/16 0934 2116 Timolol Maleate 1 GTT QAM 09/16 1000 AC 09/16 OPH 1018 Review of Systems Review of Systems: Patient denied chest pain or hemoptysis. Patient denies nausea vomiting or abdominal pain. Patient denied dysuria or hematuria. 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 self Services at Home: None Primary Language: Turkmen Smoking Status: Never Smoked ETOH Use: occasional use Illicit Drug Use: denies illicit drug use Living Will? unknown Power of Licensed Direct Entry Midwife/HCP? Patient deffered her - [place] Functional Ability ADLs Independent: dressing, eating, toileting, bathing. Ambulation: walker Exam & Diagnostic Data Vital Signs and I&O Vital Signs Date Time Temp Pulse Resp B/P B/P Pulse O2 O2 Flow FiO2 Mean Ox Delivery Rate 09/17 0637 97.6 82 20 130/76 96 Room Air 09/16 2223 99.1 97 20 132/80 96 Room Air 09/16 2012 Room Air 09/16 1600 Room Air Room Air 09/16 1431 97.8 83 20 116/60 93 Room Air 09/16 1306 98.5 85 18 98/55 93 Room Air 09/16 1110 98.0 88 20 121/64 95 Room Air 09/16 0806 97.1 83 20 128/79 96 Room Air 09/16 0803 96 Room Air 09/16 0739 97.1 83 20 128/79 96 Room Air Intake & Output 09/17 0800 09/17 0000 09/16 1600 Intake Total 1180 Output Total 1 Balance 1179 Intake, IV 700 Intake, Oral 480 Output, Stool 1 Patient 165 lb Weight Gen.: in NAD, coughing ENT: Sclera anicteric Chest: Normal respiratory effort, scattered rhonchi Cor: RRR, no extra sounds Abdomen: Soft, bowel sounds present, no tenderness, no rebound Extremities: Without clubbing, cyanosis, or asymmetric edema Neurology: Alert and oriented 3, no gross deficit Last 48 Hours of Lab Results: Laboratory Tests 09/16 09/16 0655 0600 Chemistry Sodium (137 - 145 mmol/L) 142 Potassium (3.5 - 5.1 mmol/L) 4.7 Chloride (98 - 107 mmol/L) 108 H Carbon Dioxide (22 - 30 mmol/L) 25 Anion Gap (5 - 16) 9 BUN (7 - 17 mg/dL) 26 H Creatinine (0.5 - 1.0 mg/dL) 0.9 Estimated GFR (>60 ml/min) 60 BUN/Creatinine Ratio (7 - 25 %) 28.9 H Hematology CBC w Diff MAN DIFF ORDERED WBC (4.8 - 10.8 /CUMM) 18.0 H RBC (4.20 - 5.40 /CUMM) 3.24 L Hgb (12.0 - 16.0 G/DL) 12.1 Hct (37 - 47 %) 38.6 MCV (81.0 - 99.0 FL) 119.0 H MCH (27.0 - 31.0 PG) 37.2 H MCHC (33.0 - 37.0 G/DL) 31.3 L RDW (11.5 - 14.5 %) 16.4 H Plt Count (130 - 400 /CUMM) 949 H MPV (7.4 - 10.4 FL) 9.4 Gran % (42.2 - 75.2 %) 93.7 H Lymphocytes % (20.5 - 51.1 %) 2.3 L Monocytes % (1.7 - 9.3 %) 0.6 L Eosinophils % (0 - 5 %) 3.3 Basophils % (0.0 - 2.0 %) 0.1 Absolute Granulocytes (1.4 - 6.5 /CUMM) 16.9 H Segmented Neutrophils (42.2 - 75.2 %) 88 H Band Neutrophils (0.0 - 5.0 %) 3 Absolute Lymphocytes (1.2 - 3.4 /CUMM) 0.4 L Lymphocytes (20.5 - 51.1 %) 5 L Monocytes (1.7 - 9.3 %) 2 Absolute Monocytes (0.10 - 0.60 /CUMM) 0.1 Eosinophils (0 - 5.0 %) 2 Absolute Eosinophils (0.0 - 0.7 /CUMM) 0.6 Absolute Basophils (0.0 - 0.2 /CUMM) 0 Nucleated RBCs (0.0 - 0.0 /100WBC) 1 H Platelet Estimate (ADEQUATE) INCREASED Polychromasia 1+ Basophilic Stippling RARE Anisocytosis 1+ Stomatocytes 1+ Elliptocytes FEW Urines Urine Color (YEL,AMB,STR) YEL Urine Clarity (CLEAR) CLEAR Urine pH (5.0 - 8.0) 6.0 Ur Specific [place] (1.001 - 1.035) 1.020 Urine Protein (NEG,<30 MG/DL) TRACE H Urine Ketones (NEG) NEG Urine Nitrite (NEG) NEG Urine Bilirubin (NEG) NEG Urine Urobilinogen (0.1 - 1.0 EU/dl) 0.2 Ur Leukocyte Esterase (NEG) TRACE H Ur Microscopic SEDIMENT EXAMINED Urine WBC (0 - 2 /HPF) RARE Ur Epithelial Cells (NONE,FEW) RARE Urine Hemoglobin (NEG) NEG Urine Glucose (N MG/DL) NEG 09/15 1721 Chemistry Sodium (137 - 145 mmol/L) 141 Potassium (3.5 - 5.1 mmol/L) 4.6 Chloride (98 - 107 mmol/L) 103 Carbon Dioxide (22 - 30 mmol/L) 27 Anion Gap (5 - 16) 11 BUN (7 - 17 mg/dL) 28 H Creatinine (0.5 - 1.0 mg/dL) 0.9 Estimated GFR (>60 ml/min) 60 BUN/Creatinine Ratio (7 - 25 %) 31.1 H Glucose (65 - 99 mg/dL) 87 Calcium (8.4 - 10.2 mg/dL) 9.3 Total Bilirubin (0.2 - 1.3 mg/dL) 0.7 AST (14 - 36 U/L) 28 ALT (9 - 52 U/L) 34 Alkaline Phosphatase (<127 U/L) 70 Troponin I (< 0.11 ng/ml) < 0.01 Total Protein (6.3 - 8.2 g/dL) 7.4 Albumin (3.5 - 5.0 g/dL) 3.8 Globulin (1.9 - 4.2 gm/dL) 3.6 Albumin/Globulin Ratio (1.1 - 2.2 %) 1.1 Hematology CBC w Diff MAN DIFF ORDERED WBC (4.8 - 10.8 /CUMM) 17.8 H RBC (4.20 - 5.40 /CUMM) 3.62 L Hgb (12.0 - 16.0 G/DL) 13.3 Hct (37 - 47 %) 43.0 MCV (81.0 - 99.0 FL) 118.7 H MCH (27.0 - 31.0 PG) 36.8 H MCHC (33.0 - 37.0 G/DL) 31.0 L RDW (11.5 - 14.5 %) 16.3 H Plt Count (130 - 400 /CUMM) 1028 *H MPV (7.4 - 10.4 FL) 10.7 H Gran % (42.2 - 75.2 %) 71.1 Lymphocytes % (20.5 - 51.1 %) 8.4 L Monocytes % (1.7 - 9.3 %) 14.2 H Eosinophils % (0 - 5 %) 3.5 Basophils % (0.0 - 2.0 %) 2.8 H Absolute Granulocytes (1.4 - 6.5 /CUMM) 12.6 H Segmented Neutrophils (42.2 - 75.2 %) 88 H Band Neutrophils (0.0 - 5.0 %) 2 Absolute Lymphocytes (1.2 - 3.4 /CUMM) 1.5 Lymphocytes (20.5 - 51.1 %) 2 L Monocytes (1.7 - 9.3 %) 3 Absolute Monocytes (0.10 - 0.60 /CUMM) 2.5 H Eosinophils (0 - 5.0 %) 3 Absolute Eosinophils (0.0 - 0.7 /CUMM) 0.6 Basophils (0.0 - 2.0 %) 2 Absolute Basophils (0.0 - 0.2 /CUMM) 0.5 Nucleated RBCs (0.0 - 0.0 /100WBC) 1 H Platelet Estimate (ADEQUATE) VERIFIED BY SMEAR Polychromasia 1+ Anisocytosis 2+ Macrocytic Cells 2+ Other Body Source Fld Total RBCs Counted (%) 100 Imaging/Other Studies: Chest x-ray-no infiltrate Assessment/Plan Assessment: 1. Polycythemia-is now has an elevated platelet count likely on the basis of reactivity to her recent infection and corticosteroid use. As mentioned above, is intolerant of increased doses of either anagrelide or hydroxyurea. Recommend- Continue current doses of anagrelide and hydroxyurea Follow CBC 2.s/p recent flu Recommendations: .. Consult Acknowledgment - Thank you for your consult request.
--- NOTE | 2017-09-17 07:36 | PN-Observation ---
See Addendum Observation Note Observation Note _ I have personally examined BELEN PHILIP. her disposition is uncertain at this time. Before a determination can be made, she requires continued observation for the following reasons [cough]. Assessment/Plan Medical Assessment: Ms. Philip is a 82-year-old female with past medical history of polycythemia vera followed by Dr. Davey, retinal detachment left eye, seasonal allergies, JESSICA on suggested night time 02 but not using who presents with cough. Problem list: 1. Postviral cough 2. Thrombocytosis #Postviral cough: Patient was recently admitted for influenza. Now has persistent cough without fever. She does have leukocytosis but has history of malignancy. She has remained afebrile, stable for discharge if vitals stable. -If febrile, culture and consider starting antibiotics -Benzotanate, montelukast, guaifenesin -Appreciate pulmonology recommendations #Thrombocytosis: Patient has history of polycythemia vera and now has significantly elevated platelets as well. Hematology consulted, recommends no changes at this time. They think this is likely reactive. -Appreciate hematology recommendations #Chronic medical problems: -Continue home medications DVT prophylaxis with enoxaparin Heart healthy diet Full code Problem List: 1. Post-viral cough syndrome Subjective Follow-up For: Post viral cough Subjective: No overnight events. She is still complaining of nonrpductive cough this morning. She says she feels "blah." She does not want to go home today because she is not feeling herself. Review of Systems Constitutional: Reports: see HPI. Objective Last 24 Hrs of Vital Signs/I&O Vital Signs Date Time Temp Pulse Resp B/P B/P Pulse O2 O2 Flow FiO2 Mean Ox Delivery Rate 09/17 0637 97.6 82 20 130/76 96 Room Air 09/16 2223 99.1 97 20 132/80 96 Room Air 09/16 2012 Room Air 09/16 1600 Room Air Room Air 09/16 1431 97.8 83 20 116/60 93 Room Air 09/16 1306 98.5 85 18 98/55 93 Room Air 09/16 1110 98.0 88 20 121/64 95 Room Air 09/16 0806 97.1 83 20 128/79 96 Room Air 09/16 0803 96 Room Air 09/16 0739 97.1 83 20 128/79 96 Room Air Intake & Output 09/17 0800 09/17 0000 09/16 1600 Intake Total 1180 Output Total 1 Balance 1179 Intake, IV 700 Intake, Oral 480 Output, Stool 1 Patient 74.84 kg Weight Physical Exam General Appearance: Alert, Oriented X3, Cooperative, No Acute Distress Cardiovascular: Regular Rate Lungs: Clear to Auscultation Abdomen: Normal Bowel Sounds, Soft, No Tenderness Extremities: No Edema, Normal Pulses, No Tenderness/Swelling Current Medications: Current Medications Sig/Chantel Start time Last Medication Dose Route Stop Time Status Admin Albuterol Sulfate 3 ML Q4P PRN 09/16 2030 AC INH Anagrelide HCl 0.5 MG BID 09/16 1000 AC 09/16 PO 2148 Aspirin Buffered 81 MG DAILY 09/16 1000 AC 09/16 PO 1018 Benzocaine/Menthol 1 STEPHANIE Q2P PRN 09/17 0500 AC 09/17 PO 0623 Benzonatate 100 MG TID 09/15 2245 AC 09/16 PO 2148 Cyclosporine 1 GTT BID 09/16 1000 AC 09/16 OPH 2149 Enoxaparin Sodium 40 MG DAILY 09/16 1000 AC 09/16 SC 1018 Guaifenesin 10 ML .STK-MED ONE 09/16 2039 DC PO 09/16 2040 Guaifenesin 10 ML .STK-MED ONE 09/16 1449 DC PO 09/16 1450 Guaifenesin 0 .STK-MED ONE 09/16 0759 DC PO Guaifenesin 10 ML Q4P PRN 09/15 2245 AC 09/16 PO 2040 Hydroxyurea 1,500 MG DAILY 09/16 1000 AC 09/16 PO 1018 Lactated Ringer's 1,000 ML ONCE ONE 09/16 1100 DC 09/16 IV 09/16 2059 1114 Montelukast Sodium 10 MG QPM 09/16 2200 AC 09/16 PO 2148 Sodium Chloride 1,000 ML ONCE ONE 09/15 2015 DC 09/15 IV 09/16 0934 2116 Timolol Maleate 1 GTT QAM 09/16 1000 AC 09/16 OPH 1018
--- NOTE | 2017-09-17 11:20 | Patient Discharge Instructions ---
Discharge Instructions General Discharge Information You were seen/treated for: Post viral cough Watch for these problems: Fever, chest pain, shortness of breath Special Instructions: Please take all medications as directed. Please follow-up with primary care, pulmonology, and hematology. Diet Continue normal diet: Yes Activity Full Activity/No Limits: Yes Acute Coronary Syndrome Inclusion Criteria At DC or during hospital stay patient has or had the following: ACS DIAGNOSIS No Discharge Core Measures Meds if any: Prescribed or Continued at Discharge Meds if any: NOT Prescribed or Continued at Discharge Congestive Heart Failure Inclusion Criteria At DC or during hospital stay patient has or had the following: CHF DIAGNOSIS No Discharge Core Measures Meds if any: Prescribed or Continued at Discharge Meds if any: NOT Prescribed or Continued at Discharge Cerebrovascular accident Inclusion Criteria At DC or during hospital stay patient has or had the following: CVA/TIA Diagnosis No Discharge Core Measures Meds if any: Prescribed or Continued at Discharge Meds if any: NOT Prescribed or Continued at Discharge Venous thromboembolism Inclusion Criteria VTE Diagnosis No VTE Type NONE VTE Confirmed by (Test) NONE Discharge Core Measures - Per Current guidelines, there needs to be overlap - treatment for the first 5 days of Warfarin therapy. - If discharged on Warfarin prior to 5 days of - overlap therapy, the patient will need to be - assessed for post discharge needs including - *Post discharge parental anticoagulation - *Warfarin and/or parental anticoagulation education - *Follow up date to check INR post discharge At least 5 days overlap therapy as Inpatient No Meds if any: Prescribed or Continued at Discharge Note: Overlap Therapy is Warfarin and Anticoagulant Meds if any: NOT Prescribed or Continued at Discharge
--- NOTE | 2017-09-17 12:36 | PN- Pulmonary ---
Subjective HPI/Critical Care Issues: pt seen and examined persistent cough, mostly dry comfortable otherwise Objective Current Medications: Current Medications Sig/Chantel Start time Last Medication Dose Route Stop Time Status Admin Albuterol Sulfate 3 ML Q4P PRN 09/16 2030 AC INH Anagrelide HCl 0.5 MG BID 09/16 1000 AC 09/17 PO 0913 Aspirin Buffered 81 MG DAILY 09/16 1000 AC 09/17 PO 0913 Benzocaine/Menthol 1 STEPHANIE Q2P PRN 09/17 0500 AC 09/17 PO 0623 Benzonatate 100 MG TID 09/15 2245 AC 09/17 PO 0914 Cyclosporine 1 GTT BID 09/16 1000 AC 09/17 OPH 0914 Enoxaparin Sodium 40 MG DAILY 09/16 1000 AC 09/17 SC 0912 Guaifenesin 10 ML .STK-MED ONE 09/16 2039 DC PO 09/16 2040 Guaifenesin 10 ML .STK-MED ONE 09/16 1449 DC PO 09/16 1450 Guaifenesin 10 ML Q4P PRN 09/15 2245 AC 09/17 PO 0815 Hydroxyurea 1,500 MG DAILY 09/16 1000 AC 09/17 PO 0913 Lactated Ringer's 1,000 ML ONCE ONE 09/16 1100 DC 09/16 IV 09/16 2058 1114 Montelukast Sodium 10 MG QPM 09/16 2200 AC 09/16 PO 2148 Patient Medication 1 ED ONE ONE 09/17 1100 DC Teaching ED 09/17 1101 Timolol Maleate 1 GTT QAM 09/16 1000 AC 09/17 OPH 0912 Vital Signs & I&O Last 24 Hrs of Vitals and I&O: Vital Signs Date Time Temp Pulse Resp B/P B/P Pulse O2 O2 Flow FiO2 Mean Ox Delivery Rate 09/17 1129 96 Room Air 09/17 0800 94 Room Air 09/17 0637 97.6 82 20 130/76 96 Room Air 09/17 0000 96 Nasal 2.0L Cannula 09/16 2223 99.1 97 20 132/80 96 Room Air 09/16 2013 Room Air 09/16 1600 Room Air Room Air 09/16 1431 97.8 83 20 116/60 93 Room Air 09/16 1306 98.5 85 18 98/55 93 Room Air Intake & Output 09/17 1600 09/17 0800 03/28 0000 Intake Total 50 1180 Output Total 1 Balance 50 1179 Intake, IV 0 700 Intake, Oral 50 480 Number 0 Bowel Movements Output, Stool 1 Exam Other Physical Findings: Generally - Awake, alert Head and neck -nasal cannula Cardiovascular - S1, S2 Lungs - B/L rhonchi Abdomen - Bowel sounds positive, soft, non-tender Extremities - trace edema Impression/Plan Impression/Plan Impression/Plan: Impression 82 year old woman * viral bronchitis * recent influenza type B Plan -trc/nebs -continue using o2 at night which can benefit her polycythemia -hematology consultation noted DC planning DVT prophylaxis at all times
== END 2017-09-17 14:58 ==
LOC: ERH 14:27 → ERHI 20:38 → 2NA 20:38 → ENRESERV 09-16 13:20 → ENTRNSPT 09-16 13:27 → ERHI 09-16 13:35 → EDTRNSPT 09-16 13:43 → EDTRNSPTSTS 09-16 13:43 → 2NA 09-16 13:56 → CMPTRNSPT 09-16 14:03 → ENPENDDIS 09-17 11:26 → ENTRNSPT 09-17 14:17 → CMPTRNSPT 09-17 14:38 → 2NA 09-17 14:58
PROVIDERS: Internal Medicine; Physician Assistant
DX: J40 Bronchitis, not specified as acute or chronic (principal); Z79.82 Long term (current) use of aspirin; D45 Polycythemia vera; D47.3 Essential (hemorrhagic) thrombocythemia; G47.33 Obstructive sleep apnea (adult) (pediatric); Z99.81 Dependence on supplemental oxygen; H40.9 Unspecified glaucoma; R32 Unspecified urinary incontinence; R53.1 Weakness; R50.9 Fever, unspecified
CPT/HCPCS: 1328; 1530; 1748; 6030; 71045; 81001; 82436; 87070; 87804; 87804-59; 93005; 93010; 96372; G0378; J1650; J7120

== ENCOUNTER 2017-10-22 11:46 | Emergency (ER) | payer OTHER, MEDICARE ==
[~2017-10-22] VITALS: Ht 157.5 cm; Wt 75.8 kg
--- NOTE | 2017-10-22 12:24 | ED SKIN/ALLERGY COMPLAINT ---
History of Present Illness General Chief Complaint: Laceration Procedure Stated Complaint: BLEEDING WOUND Source: patient Exam Limitations: no limitations Vital Signs & Intake/Output Vital Signs & Intake/Output Vital Signs Date Time Temp Pulse Resp B/P B/P Pulse O2 O2 Flow FiO2 Mean Ox Delivery Rate 10/22 1535 97.4 88 16 101/58 98 Room Air 10/22 1422 Room Air 10/22 1157 97.6 91 18 90/60 97 Room Air Allergies Coded Allergies: No Known Allergies (09/04/17) Reconcile Medications Anagrelide Hydrochloride (Agrylin) 0.5 MG CAPSULE 1 TAB PO BID UNKNOWN ( Reported) LAST GIVEN TIME: 0913 AM Aspirin (Ecotrin*) 81 MG TABLET.DR 1 TAB PO DAILY HEART/BLOOD (Reported) Cyclosporine (Restasis) 1 EACH DROPERETTE 1 GTT OPH BID BOTH EYES (Reported) Hydroxyurea 500 MG CAPSULE 3 CAP PO DAILY PVC (Reported) Montelukast Sodium 10 MG TABLET 1 TAB PO QPM ALLERGIES (Reported) Timolol Maleate (Timoptic-Xe) 5 ML NIC.GEL 1 GTT OS QAM LEFT EYE (Reported) Triage Note: PT TO ER C/C BLEEDING AT SITE OF SKIN BIOPSY (LATERAL ASPECT OF RIGHT HAND) SINCE 414. HAD BIOPSY LAST WEEK BY DR. GAMA, UNABLE TO GET IN TOUCH WITH SERVICE. TAKES 81 MG ASA DAILY. LAST DOSE YESTERDAY Triage Nurses Notes Reviewed? yes Onset: Gradual Duration: hour(s): Timing: single episode today Severity: moderate Location: hands HPI: 82 year old female presents to the emergency room for right hand bleeding. She states she had a biopsy by Dr. Gama about four days ago on her right hand. She has not had bleeding since her biopsy until 4:00 AM this AM when she woke up in a "pool" of her blood. She put bread on her wound which helped stopped the bleeding. She is on aspirin but did not take her morning dose today. Patient states that the wound has continued to ooze and so she presented here to emergency department. 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 She denies fevers, chills, night sweats, headache, or dizziness. (Minnie CORONA,Lala Torres) Past History Travel History Traveled to [place] past 21 day No Medical History Any Pertinent Medical History? 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 No (Lala Moore) Review of Systems Review of Systems Constitutional: Reports: no symptoms. EENTM: Reports: no symptoms. Respiratory: Reports: no symptoms. Cardiovascular: Reports: no symptoms. GI: Reports: no symptoms. Genitourinary: Reports: no symptoms. Musculoskeletal: Reports: no symptoms. Skin: Reports: see HPI. Neurological/Psychological: Reports: no symptoms. Hematologic/Endocrine: Reports: no symptoms. Immunologic/Allergic: Reports: no symptoms. All Other Systems: Reviewed and Negative (Lala Moore) Physical Exam Physical Exam General Appearance: well developed/nourished, no apparent distress, alert, awake Head: atraumatic, normal appearance Eyes: Bilateral: normal appearance. Ears, Nose, Throat: hearing grossly normal Neck: normal inspection, supple, full range of motion Respiratory: no respiratory distress Back: normal inspection, normal range of motion Extremities: normal range of motion, 1cm wound to dorsal lateral right hand with active mild oozing of blood Neurologic/Psych: awake, alert, oriented x 3, normal gait Skin: bleeding wound of right hand as described above (Lala Moore) Progress Differential Diagnosis: cellulitis, malignancy, bleeding, anemia Plan of Care: Orders Procedure Date/time Status MISTAKE 10/22 1223 Active PARTIAL THROMBOPLASTIN TIME 10/22 1223 Complete PROTHROMBIN TIME 10/22 1223 Complete COMPREHENSIVE METABOLIC PANEL 10/22 1223 Complete CBC WITHOUT DIFFERENTIAL 10/22 1223 Complete Laboratory Tests 10/22/17 1326: Anion Gap 10, Estimated GFR > 60, BUN/Creatinine Ratio 30.0 H, Glucose 85, Calcium 8.7, Total Bilirubin 0.6, AST 15, ALT 24, Alkaline Phosphatase 67, Total Protein 7.0, Albumin 3.7, Globulin 3.3, Albumin/Globulin Ratio 1.1, PT 13.2 H, INR 1.21 H, APTT 35, CBC w Diff MAN DIFF ORDERED, RBC 3.52 L, MCV 117.7 H, MCH 37.2 H, MCHC 31.6 L, RDW 17.0 H, MPV 9.9, Segmented Neutrophils 81 H, Monocytes 2, Eosinophils 3, Basophils 10 H, Platelet Estimate INCREASED, Normochromic RBCs VERIFIED, Poikilocytosis 2+, Anisocytosis 2+, Macrocytic Cells 3+, Ovalocytes 2+, Stomatocytes 2+, Fld Total RBCs Counted 100 Thrombin was placed to biopsy site with pressure dressing. Patient tolerated dressing application. Labs are stable, no acute anemia. Patient ambulatory without difficulty in the emergency Department. Patient was given a referral to follow-up with a specialist regarding her cancerous skin lesion. Patient feels ready to go home at this time, no further symptoms. There is no persistent bleeding following dressing placement. The patient agrees with the plan of care. Patient seen and evaluated by Dr. Marquez who agrees with plan of care. (Minnie CORONA,Lala Torres) Departure Departure Disposition: HOME OR SELF CARE Condition: Stable Clinical Impression Primary Impression: Bleeding Secondary Impressions: Wound of skin Referrals: Kit LÓPEZ,Josselin Alvarado (PCP/Family) Nick LÓPEZ,Vasquez Wilson Additional Instructions: Keep dressing on to cover wound for at least 2 days. Follow-up with referral for your skin biopsy. Return with worsening symptoms or concerns such as increasing bleeding, pain. Please note that there might be incidental findings in your evaluation that are unrelated to the current emergency department visit. Please notify your primary care doctor about this emergency department visit in order to obtain and review all of the testing performed so that these incidental findings can be monitored as needed. If you had an x-ray performed, please understand that some fractures may not be seen on the initial set of x-rays. If your symptoms persist you might need a repeat set of x-rays to check for such a fracture. If you had a laceration evaluated, please understand that foreign bodies such as glass or wood may not be visible to the naked eye or on plain x-rays. If the wound becomes red, swollen, increasingly more painful or if there is any drainage from the wound, please have it reevaluated by a physician for the possibility of a retained foreign body. If you're unable to follow up as outlined in the discharge instructions please return to the emergency department. Thank you for choosing the [facility] Emergency Department for your care. It was a pleasure to serve you today. Departure Forms: Customer Survey General Discharge Information (Minnie CORONA,Lala Torres) PA/CRIME LAB ANALYST Co-Sign Statement Statement: ED Attending supervision documentation- [X] I saw and evaluated the patient. I have also reviewed all the pertinent lab results and diagnostic results. I agree with the findings and the plan of care as documented in the PA's/CRIME LAB ANALYST's documentation. Patient presents for evaluation of bleeding from a biopsy site of the right hand. Physical examination reveals a dressed right hand wound with an intact dressing (I have not removed the dressing as it was freshly placed). [] I have reviewed the ED Record and agree with the PA's/CRIME LAB ANALYST's documentation. [] Additions or exceptions (if any) to the PAs/CRIME LAB ANALYST's note and plan are summarized below: [] (Alma LÓPEZ,Cristiano Jeffrey)
[2017-10-22 13:39] LABS: HEMATOCRIT 41.4 % (37-47); MEAN CORPUSCULAR HGB 37.2 PG (27.0-31.0); MEAN CORPUSCULAR HGB CONC 31.6 G/DL (33.0-37.0); MEAN CORPUSCULAR VOLUME 117.7 FL (81.0-99.0); MEAN PLATELET VOLUME 9.9 FL (7.4-10.4); PLATELET COUNT 652 /CUMM (130-400); RED BLOOD CELL CT 3.52 /CUMM (4.20-5.40); WHITE BLOOD CELL COUNT 8.2 /CUMM (4.8-10.8)
[2017-10-22 14:04] LABS: PT 13.2 SEC (9.4-12.5); PTT 35 SEC (25-37)
[2017-10-22 15:35] VITALS: BP 101/58
== END 2017-10-22 15:35 ==
LOC: ERH 11:46
PROVIDERS: Physician Assistant
DX: L76.21 Postprocedural hemorrhage of skin and subcutaneous tissue following a dermatologic procedure (principal)

== ENCOUNTER 2017-10-23 01:45 | Emergency (ER) | payer OTHER, MEDICARE ==
[~2017-10-23] VITALS: Ht 157.5 cm; Wt 74.8 kg
[2017-10-23 02:01] VITALS: BP 113/70
--- NOTE | 2017-10-23 02:37 | ED SKIN/ALLERGY COMPLAINT ---
History of Present Illness General Chief Complaint: General Adult Stated Complaint: " RT WRIST BLEEDING, WAS SEEN HERE YEST FOR SAME" Source: patient, family, old records Exam Limitations: no limitations Vital Signs & Intake/Output Vital Signs & Intake/Output Vital Signs Date Time Temp Pulse Resp B/P B/P Pulse O2 O2 Flow FiO2 Mean Ox Delivery Rate 10/23 0201 98.6 83 20 113/70 98 Room Air Allergies Coded Allergies: No Known Allergies (09/04/17) Reconcile Medications Anagrelide Hydrochloride (Agrylin) 0.5 MG CAPSULE 1 TAB PO BID UNKNOWN ( Reported) LAST GIVEN TIME: 0913 AM Aspirin (Ecotrin*) 81 MG TABLET.DR 1 TAB PO DAILY HEART/BLOOD (Reported) Cyclosporine (Restasis) 1 EACH DROPERETTE 1 GTT OPH BID BOTH EYES (Reported) Hydroxyurea 500 MG CAPSULE 3 CAP PO DAILY PVC (Reported) Montelukast Sodium 10 MG TABLET 1 TAB PO QPM ALLERGIES (Reported) Timolol Maleate (Timoptic-Xe) 5 ML NIC.GEL 1 GTT OS QAM LEFT EYE (Reported) Triage Note: 82yo FEMALE TO RM 4 VIA WHEELCHAIR FROM TRIAGE W/CO BLEEDING PRESENT R HAND FROM BIOPSY TAKEN 1 WEEK AGO. STATES "BLEEDING BEGAN FRI AFTERNOON, WAS SEEN HERE DURING THE AFTERNOON. R HAND DRSG SATURATED W/FRESH RED BLOOD. Triage Nurses Notes Reviewed? yes Onset: Just prior to arrival Duration: minute(s):, constant, continues in ED Timing: recent history Severity: mild, moderate Location: extremities Possible Factors: no cause identified No Modifying Factors: none LMP (ages 10-50): post menopausal : No Patient currently breastfeeds: No HPI: Patient returns with recurrent bleeding to right lateral hand after biopsy yesterday. Her bandage became loose and fell off. She does fever chills nausea vomiting diarrhea abdominal pain chest pain shortness breath headache dysuria rash. Past History Travel History Traveled to [place] past 21 day No Medical History Any Pertinent Medical History? 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 No Review of Systems Review of Systems Constitutional: Reports: no symptoms. EENTM: Reports: no symptoms. Respiratory: Reports: no symptoms. Cardiovascular: Reports: no symptoms. GI: Reports: no symptoms. Genitourinary: Reports: no symptoms. Musculoskeletal: Reports: no symptoms. Skin: Reports: see HPI. Neurological/Psychological: Reports: no symptoms. Hematologic/Endocrine: Reports: no symptoms. Immunologic/Allergic: Reports: no symptoms. All Other Systems: Reviewed and Negative Physical Exam Physical Exam General Appearance: well developed/nourished, alert, awake, anxious, mild distress Head: atraumatic, normal appearance Eyes: Bilateral: PERRL, EOMI. Ears, Nose, Throat: normal pharynx, normal ENT inspection, hearing grossly normal Neck: normal inspection, supple Respiratory: normal breath sounds Cardiovascular: regular rate/rhythm Peripheral Pulses: 4+ carotid (R), 4+ carotid (L) Gastrointestinal: normal bowel sounds, soft, non-tender, no organomegaly Back: normal inspection, normal range of motion Extremities: normal inspection, normal capillary refill, normal range of motion, no edema Neurologic/Psych: no motor/sensory deficits, awake, alert, oriented x 3, normal gait, normal mood/affect Reflexes: 2+: bicep (R), bicep (L). Skin: normal color, mid fifth metacarpal of right with circular area of oozing from biopsy site. Skin Problem Location: upper extremities Skin Problem Character: biopsy site bleeding Lymphatic: no anterior cervical raymond Progress Differential Diagnosis: post op bleeding Plan of Care: [employer] Departure Departure Time of Disposition: 235 Disposition: HOME OR SELF CARE Condition: Stable Clinical Impression Primary Impression: Postoperative complication Secondary Impressions: Postoperative bleeding from incision Referrals: Kit LÓPEZ,Josselin Alvarado (PCP/Family) Yaw LÓPEZ,Dominique Johnson Departure Forms: Customer Survey General Discharge Information
== END 2017-10-23 02:56 ==
LOC: ERH 01:45
DX: L76.21 Postprocedural hemorrhage of skin and subcutaneous tissue following a dermatologic procedure (principal)
CPT/HCPCS: 99282